=== PATIENT | female | born 1990 | race Caucasian/White ===

== ENCOUNTER 2021-06-12 08:15 | Inpatient (IN) | payer MEDICAID ==
--- NOTE | 2021-06-12 08:53 | XR ---
EXAMINATION TYPE: XR chest 1V portable DATE OF EXAM: 06/12/2021 COMPARISON: NONE HISTORY: Cough TECHNIQUE: Single frontal view of the chest is obtained. FINDINGS: There are partially consolidative opacities in both lung bases right greater than left. There is no pleural effusion or pneumothorax. The heart and pulmonary vasculature are normal. The osseous structures are intact. IMPRESSION: Partially consolidative opacities in the lung bases bilaterally right greater than left. The findings are suspicious for pneumonia. Clinical correlation short-term follow-up to resolution i s recommended.
[2021-06-12] MEDS ORDERED: SODIUM CHLORIDE 0.9% 1,000 ML IV ONE (10:23)
[2021-06-12] MEDS ORDERED: ACETAMINOPHEN TAB 500 MG TAB PO STA (10:27)
[2021-06-12] MEDS ORDERED: KETOROLAC 30 MG/ML 1 ML VIAL IVP STA (10:27)
--- NOTE | 2021-06-12 10:59 | ED ---
URI HPI - General Chief Complaint: Upper Respiratory Infection Stated Complaint: Covid+/HORACIO Time Seen by Provider: 06/12/21 10:07 Source: patient, family, RN notes reviewed Mode of arrival: ambulatory Limitations: no limitations - History of Present Illness Initial Comments: This a 31-year-old female presents emergency Department chief complaint of fever cough congestion bodies. Patient's COVID-19 positive tested positive on Monday. Patient states states that symptoms do not seem to be improving. Continues to have fevers, increasing cough. No GI symptoms including nausea vomiting diarrhea constipation no prior cardiac or lung disease. - Related Data Allergies Allergy/AdvReac Type Severity Reaction Status Date / Time No Known Allergies Allergy Verified 06/12/21 08:37 Review of Systems ROS Statement: Those systems with pertinent positive or pertinent negative responses have been documented in the HPI. ROS Other: All systems not noted in ROS Statement are negative. Past Medical History Past Medical History: No Reported History History of Any Multi-Drug Resistant Organisms: None Reported Past Surgical History: No Surgical Hx Reported Past Psychological History: No Psychological Hx Reported Smoking Status: Never smoker Past Alcohol Use History: Occasional Past Drug Use History: None Reported General Exam Limitations: no limitations General appearance: alert, in no apparent distress Head exam: Present: atraumatic, normocephalic, normal inspection Eye exam: Present: normal appearance, PERRL, EOMI. Absent: scleral icterus, conjunctival injection, periorbital swelling ENT exam: Present: normal exam, mucous membranes moist Neck exam: Present: normal inspection. Absent: tenderness, meningismus, lymphadenopathy Respiratory exam: Present: normal lung sounds bilaterally. Absent: respiratory distress, wheezes, rales, rhonchi, stridor Cardiovascular Exam: Present: normal rhythm, tachycardia, normal heart sounds. Absent: systolic murmur, diastolic murmur, rubs, gallop, clicks Course Vital Signs 06/12/21 06/12/21 08:31 10:52 Temperature 99.7 F H Pulse Rate 102 H 85 Respiratory 22 18 Rate Blood Pressure 107/71 114/65 O2 Sat by Pulse 96 95 Oximetry Medical Decision Making - Medical Decision Making This x-ray shows bilateral COVID-19 pneumonia. Patient's vitals are stable patient did receive monoclonal antibodies, will be discharged in stable condition. Disposition Clinical Impression: COVID-19 Disposition: HOME SELF-CARE Condition: Stable Instructions (If sedation given, give patient instructions): Coronavirus Disease 2019 (COVID-19) Additional Instructions: Please return to the Emergency Department if symptoms worsen or any other concerns. Is patient prescribed a controlled substance at d/c from ED?: No Referrals: Darcie Michael MD [Primary Care Provider] - 1-2 days Time of Disposition: 10:59
[2021-06-12] MEDS ORDERED: SODIUM CHLORIDE 0.9% 50 ML IVPB ONE (11:15)
[2021-06-12] MEDS ORDERED: SOTROVIMAB (EUA) 500 MG in SODIUM CHLORIDE 0.9% 100 ML IVPB ONE (11:15)
[2021-06-12] MEDS ORDERED: DEXAMETHASONE SOD PHOSPHATE 10 MG/ML 1 ML VIAL IVP STA (13:33)
[2021-06-12] MEDS ORDERED: NALOXONE 0.4 MG/ML 1 ML VIAL IV PRN (13:37)
--- NOTE | 2021-06-12 13:37 | ED ---
Medical Decision Making - Medical Decision Making Upon discharge patient noted to have a pulse ox between [id number] upon ambulation patient has a pulse ox 87%. Patient be made for COVID-19 pneumonia. Disposition Clinical Impression: COVID-19, Pneumonia due to COVID-19 virus, Hypoxia Disposition: ADMITTED IP TO THIS HOSP Condition: Fair Instructions (If sedation given, give patient instructions): Coronavirus Dise ase 2019 (COVID-19) Additional Instructions: Please return to the Emergency Department if symptoms worsen or any other concerns. Referrals: Darcie Michael MD [Primary Care Provider] - 1-2 days
[2021-06-12 14:27] LABS: Basophils % (A) 1 %; Eosinophils % (A) 0 %; HCT 31.9 % (34.0-46.0); HGB 11.2 gm/dL (11.4-16.0); Lymphocytes # (A) 0.6 k/uL (1.0-4.8); Lymphocytes % (A) 31 %; MCHC 35.2 g/dL (31.0-37.0); MCV 82.3 fL (80.0-100.0); Mean Platelet Volume 8.9; Monocytes # (A) 0.1 k/uL (0-1.0); Monocytes % (A) 4 %; Neutrophils # (A) 1.2 k/uL (1.3-7.7); Neutrophils % (A) 63 %; Platelet Count 125 k/uL (150-450); RBC 3.88 m/uL (3.80-5.40); RDW 13.9 % (11.5-15.5); WBC 1.9 k/uL (3.8-10.6)
[2021-06-12 15:05] LABS: ALT 138 U/L (4-34); AST 205 U/L (14-36); African American GFR (CKD) >90 (>60 ml/min/1.73 sqM); Albumin 2.9 g/dL (3.5-5.0); Alkaline Phosphatase 89 U/L (38-126); Anion Gap 5 mmol/L; Blood Urea Nitrogen 6 mg/dL (7-17); C Reactive Protein 8.3 mg/dL (<1.0); Calcium 7.6 mg/dL (8.4-10.2); Carbon Dioxide 21 mmol/L (22-30); Chloride 109 mmol/L (98-107); Glucose 83 mg/dL (74-99); LDH 1120 U/L (313-618); Non-African American GFR(CKD) >90 (>60 ml/min/1.73 sqM); Sodium 135 mmol/L (137-145); Total Bilirubin 0.5 mg/dL (0.2-1.3); Total Protein 5.6 g/dL (6.3-8.2)
--- NOTE | 2021-06-12 17:04 | P.HPIM ---
History of Present Illness Patient D1-year-old female came with complaints of a cough congestion started about 7 days ago and patient was diagnosed with Covid 19 about 5 days ago. Patient was receiving monoclonal antibodies earlier today and up having hypoxic subsequently admitted to medical floor. Patient is presently on Decadron Lovenox. She does have elevated liver enzymes. REVIEW OF SYSTEMS: CONSTITUTIONAL: No fever, no malaise, no fatigue. HEENT: No recent visual problems or hearing problems. Denied any sore throat. CARDIOVASCULAR: No chest pain, orthopnea, PND, no palpitations, no syncope. PULMONARY: No shortness of breath, no hemoptysis. GASTROINTESTINAL: No diarrhea, no nausea, no vomiting, no abdominal pain. NEUROLOGICAL: No headaches, no weakness, no numbness. HEMATOLOGICAL: Denies any bleeding or petechiae. GENITOURINARY: Denies any burning micturition, frequency, or urgency. MUSCULOSKELETAL/RHEUMATOLOGICAL: Denies any joint pain, swelling, or any muscle pain. ENDOCRINE: Denies any polyuria or polydipsia. The rest of the 14-point review of systems is negative. PHYSICAL EXAMINATION: GENERAL: The patient is alert and oriented x3, not in any acute distress. Well developed, well nourished. HEENT: Pupils are round and equally reacting to light. EOMI. No scleral icterus. No conjunctival pallor. Normocephalic, atraumatic. No pharyngeal erythema. No thyromegaly. CARDIOVASCULAR: S1 and S2 present. No murmurs, rubs, or gallops. PULMONARY: Chest is clear to auscultation, no wheezing or crackles. ABDOMEN: Soft, nontender, nondistended, normoactive bowel sounds. No palpable organomegaly. MUSCULOSKELETAL: No joint swelling or deformity. EXTREMITIES: No cyanosis, clubbing, or pedal edema. NEUROLOGICAL: Gross neurological examination did not reveal any focal deficits. SKIN: No rashes. Assessment and plan Acute hypoxic respiratory failure secondary to Covid 19 pneumonia and patient is on Decadron which will be continued. -Transaminitis secondary to Covid 19 pneumonia we'll repeat the AST and ALT mariann orrow again DVT prophylaxis: Lovenox Past Medical History Past Medical History: No Reported History History of Any Multi-Drug Resistant Organisms: None Reported Past Surgical History: Tonsillectomy Past Psychological History: No Psychological Hx Reported Smoking Status: Never smoker Past Alcohol Use History: Occasional Past Drug Use History: None Reported Medications and Allergies Home Medications Medication Instructions Recorded Confirmed Type Acetaminophen Tab [Tylenol Tab] 1,000 mg PO Q6HR PRN 06/12/21 06/12/21 History Ascorbic Acid [Vitamin C] 1,000 mg PO DAILY 06/12/21 06/12/21 History Estarylla 0.25-0.035 1 tab PO DAILY 06/12/21 06/12/21 History Ferrous Sulfate [Feosol] 325 mg PO DAILY 06/12/21 06/12/21 History Ibuprofen [Motrin Ib] 800 mg PO Q8H PRN 06/12/21 06/12/21 History guaiFENesin [Mucinex] 600 mg PO BID PRN 06/12/21 06/12/21 History Allergies Allergy/AdvReac Type Severity Reaction Status Date / Time No Known Allergies Allergy Verified 06/12/21 13:53 Physical Exam Vitals: Vital Signs Temp Pulse Pulse Resp BP BP Pulse Ox 06/12/21 16:20 97.5 F L 88 17 91/54 93 L 06/12/21 15:50 97.8 F 87 18 111/68 93 L 06/12/21 13:35 93 L 06/12/21 13:34 87 L 06/12/21 13:00 99 18 90 L 06/12/21 12:32 84 18 115/67 92 L 06/12/21 10:52 85 18 114/65 95 06/12/21 08:31 99.7 F H 102 H 22 107/71 96 Intake and Output 06/12/21 06/12/21 06/12/21 06:59 14:59 22:59 Other: Weight 65.771 kg 65.771 kg Results CBC & Chem 7: 06/12/21 14:15 06/12/21 14:15 Labs: Abnormal Lab Results - Last 24 Hours (Table) 06/12/21 06/12/21 Range/Units 14:15 14:15 WBC 1.9 L (3.8-10.6) k/uL Hgb 11.2 L (11.4-16.0) gm/dL Hct 31.9 L (34.0-46.0) % Plt Count 125 L (150-450) k/uL Neutrophils # 1.2 L (1.3-7.7) k/uL Lymphocytes # 0.6 L (1.0-4.8) k/uL Sodium 135 L (137-145) mmol/L Chloride 109 H (98-107) mmol/L Carbon Dioxide 21 L (22-30) mmol/L BUN 6 L (7-17) mg/dL Calcium 7.6 L (8.4-10.2) mg/dL AST 205 H (14-36) U/L ALT 138 H (4-34) U/L Lactate Dehydrogenase 1120 H (313-618) U/L C-Reactive Protein 8.3 H (<1.0) mg/dL Total Protein 5.6 L (6.3-8.2) g/dL Albumin 2.9 L (3.5-5.0) g/dL
[2021-06-12] MEDS ORDERED: REMDESIVIR 200 MG in SODIUM CHLORIDE 0.9% 250 ML IVPB ONE (17:19)
--- NOTE | 2021-06-12 17:19 | P.CNPUL ---
History of Present Illness Consult date: 06/12/21 Reason for consult: dyspnea, hypoxemia, pneumonia History of present illness: 31-year-old female patient who was hospitalized for COVID 19 related pneumonia. The patient tested positive for COVID 19 on Monday which was 06/07/2021. Her symptoms started approximately 7 days ago. The patient started having fever, increased cough and congestion, and body aches. For that reason, she came into the hospital. In the ED, she had a temperature of 99.7, pulse ox was 96% on room air oxygen. She had a white cell count of 1.9, hemoglobin of 11.2, platelet count of 125, and she also had an LDH of 1120, CRP of 8.3, no electrolytes, sodium level is at 135. Chest x-ray shows bilateral pneumonia consistent with COVID 19 periods currently is on 2 L approximately nasal cannula. She was given Decadron in the emergency department. No other comorbi dities. She is otherwise healthy. Review of Systems Constitutional: Reports fatigue, Reports fever, Reports weakness Eyes: denies as per HPI, denies blurred vision, denies bulging eye, denies decreased vision, denies diplopia, denies discharge, denies dry eye, denies irritation, denies itching, denies pain, denies photophobia, denies loss of peripheral vision, denies loss of vision, denies tunnel vision/blind spots Ears: deny: decreased hearing, ear discharge, earache, tinnitus Ears, nose, mouth and throat: Reports as per HPI Breasts: absent: as per HPI, change in shape, gynecomastia, masses, nipple discharge, pain, skin changes, swelling Cardiovascular: Reports decreased exercise tolerance, Reports dyspnea on exertion Respiratory: Reports dyspnea Gastrointestinal: Reports as per HPI Genitourinary: Reports as per HPI Menstruation: Reports as per HPI Musculoskeletal: Reports as per HPI Musculoskeletal: absent: ankle pain, ankle stiffness, ankle swelling Integumentary: Reports as per HPI Neurological: Reports as per HPI Psychiatric: Reports as per HPI Endocrine: Reports as per HPI, Reports fatigue Hematologic/Lymphatic: Reports as per HPI Allergic/Immunologic: Reports as per HPI Past Medical History Past Medical History: No Reported History History of Any Multi-Drug Resistant Organisms: None Reported Past Surgical History: No Surgical Hx Reported Past Psychological History: No Psychological Hx Reported Smoking Status: Never smoker Past Alcohol Use History: Occasional Past Drug Use History: None Reported Medications and Allergies Home Medications Medication Instructions Recorded Confirmed Type Acetaminophen Tab [Tylenol Tab] 1,000 mg PO Q6HR PRN 06/12/21 06/12/21 History Ascorbic Acid [Vitamin C] 1,000 mg PO DAILY 06/12/21 06/12/21 History Estarylla 0.25-0.035 1 tab PO DAILY 06/12/21 06/12/21 History Ferrous Sulfate [Feosol] 325 mg PO DAILY 06/12/21 06/12/21 History Ibuprofen [Motrin Ib] 800 mg PO Q8H PRN 06/12/21 06/12/21 History guaiFENesin [Mucinex] 600 mg PO BID PRN 06/12/21 06/12/21 History Allergies Allergy/AdvReac Type Severity Reaction Status Date / Time No Known Allergies Allergy Verified 06/12/21 13:53 Physical Exam Vitals: Vital Signs Temp Pulse Resp BP Pulse Ox 06/12/21 15:50 97.8 F 87 18 111/68 93 L 06/12/21 13:35 93 L 06/12/21 13:34 87 L 06/12/21 13:00 99 18 90 L 06/12/21 12:32 84 18 115/67 92 L 06/12/21 10:52 85 18 114/65 95 06/12/21 08:31 99.7 F H 102 H 22 107/71 96 Intake and Output 06/12/21 06/12/21 06/12/21 06:59 14:59 22:59 Other: Weight 65.771 kg General appearance: alert, in no apparent distress, currently on 2 L about 2 by nasal cannula. Head exam: Present: atraumatic, normocephalic, normal inspection Eye exam: Present: normal appearance, PERRL, EOMI. Absent: scleral icterus, conjunctival injection, periorbital swelling ENT exam: Present: normal exam, mucous membranes moist Neck exam: Present: normal inspection. Absent: tenderness, meningismus, lymphadenopathy Respiratory exam: Present: normal lung sounds bilaterally. Absent: respiratory distress, wheezes, rales, rhonchi, stridor Cardiovascular Exam: Present: normal rhythm, tachycardia, normal heart sounds. Absent: systolic murmur, diastolic murmur, rubs, gallop, clicks Abdominal exam revealed normal bowel sounds. The abdomen was soft, non-tender, and without masses, organomegaly, or appreciable enlargement of the abdominal aorta. Examination of the extremities revealed easily palpable radial, femoral and pedal pulses. There was no cyanosis, clubbing or edema. Examination of the skin revealed no evidence of significant rashes, suspicious appearing nevi or other concerning lesions. Neurologically, the patient is awake and alert and the patient does not have any focal neurological deficit. Cranial nerves are essentially intact. Results - Laboratory Findings CBC and BMP: 06/12/21 14:15 06/12/21 14:15 Abnormal lab findings: Abnormal Labs 06/12/21 06/12/21 14:15 14:15 WBC 1.9 L Hgb 11.2 L Hct 31.9 L Plt Count 125 L Neutrophils # 1.2 L Lymphocytes # 0.6 L Sodium 135 L Chloride 109 H Carbon Dioxide 21 L BUN 6 L Calcium 7.6 L AST 205 H ALT 138 H Lactate Dehydrogenase 1120 H C-Reactive Protein 8.3 H Total Protein 5.6 L Albumin 2.9 L - Diagnostic Findings Chest x-ray: image reviewed Assessment and Plan Plan: 1 acute bilateral COVID 19 related pneumonia. Diagnosis established on 06/07/2021. Patient was symptomatically for more than a week. 2 acute hypoxic respiratory failure currently on 2 L by nasal cannula 3 acute hematologic abnormalities second the COVID 19. The patient has leukopenia, anemia and thrombocytopenia. 4 elevation diaphragmatic marker secondary to above. LDH level is at 1120. D-dimer is pending Plan Treat patient with oxygen 2 L per minute nasal cannula and titrate oxygen flow to maintain a saturation above 90% Put the patient on Decadron 6 mg IV every 24 hours and the patient also falls within the window Remdesivir and this will be started per protocol. She is a volume without volume Lovenox for DVT prophylaxis Monitor hematologic profile Obtain D-dimer Obtain pro-calcitonin levels Vitamin C vitamin D and zinc supplements
[2021-06-12] MEDS: SODIUM CHLORIDE 0.9% 1,000 ML IV SCH (17:28)
[2021-06-12] MEDS: FAMOTIDINE 20 MG TAB PO SCH (21:00)
[2021-06-13] MEDS: ACETAMINOPHEN TAB 325 MG TAB PO PRN ×2 (02:12→10:47)
[2021-06-13] MEDS: dexAMETHasone 2 MG TAB PO SCH (07:26)
[2021-06-13] MEDS: ASCORBIC ACID 500 MG TAB PO SCH (07:26)
[2021-06-13] MEDS: CHOLECALCIFEROL 25 MCG (1000 IU) TABLET PO SCH (07:27)
[2021-06-13] MEDS: ENOXAPARIN 40 MG/0.4 ML SYRINGE SQ SCH (07:27)
[2021-06-13] MEDS: FAMOTIDINE 20 MG TAB PO SCH ×2 (07:27→21:27)
[2021-06-13] MEDS: ZINC SULFATE 220 MG CAP PO SCH (07:27)
[2021-06-13] MEDS ORDERED: REMDESIVIR 100 MG in SODIUM CHLORIDE 0.9% 250 ML IVPB SCH (09:00)
[2021-06-13 09:24] LABS: HCT 32.4 % (37.2-46.3); HGB 10.4 g/dL (12.0-15.0); MCH 27.6 pg (27.0-32.0); MCHC 32.1 g/dL (32.0-37.0); MCV 85.9 fL (80.0-97.0); Mean Platelet Volume 11.5 fL (9.5-12.2); Platelet Count 149 X 10*3/uL (140-440); RBC 3.77 X 10*6/uL (4.10-5.20); RDW 13.9 % (11.5-14.5)
[2021-06-13 09:52] LABS: African American GFR (CKD) 140.8 (60.0-200.0); Albumin/Globulin Ratio 1.3 (1.60-3.17); Anion Gap 15.2 mmol/L (10.00-18.00); BUN/Creat Ratio 8.5 Ratio (12.00-20.00); Blood Urea Nitrogen 5.1 mg/dL (9.0-27.0); Calcium 7.5 mg/dL (8.7-10.3); Carbon Dioxide 17.8 mmol/L (20.0-27.5); Globulin 2.3 g/dL (1.6-3.3); Non-African American GFR(CKD) 121.5 (60.0-200.0); Potassium 4.1 mmol/L (3.5-5.5); Total Bilirubin 0.3 mg/dL (0.30-1.20); Total Protein 5.3 g/dL (6.2-8.2)
--- NOTE | 2021-06-13 14:18 | P.PN ---
Subjective Patient D1-year-old female came with complaints of a cough congestion started about 7 days ago and patient was diagnosed with Covid 19 about 5 days ago. Patient was receiving monoclonal antibodies earlier today and up having hypoxic subsequently admitted to medical floor. Patient is presently on Decadron Lovenox. She does have elevated liver enzymes. 06/13/2021 Patient is still febrile with temperature of 100.4. Patient's hyponatremia imp roved white blood cell come improved patient is bit neutropenic yesterday and patient platelet count improved as well all these are because of sepsis. Patient was pretty status although has worsened and patient is presently on 15 L of oxygen. Discussed her CODE STATUS patient is agreeable with full code and intubation if needed patient liver enzymes still remain elevated but improved compared to yesterday. Constitutional: Denied any fatigue denied any fever. Cardio vascular: denied any chest pain, palpitations Gastrointestinal denied any nausea vomiting Pulmonary: Mentioned in HPI Neurologic denied any new focal deficits All inpatient medications were reviewed and appropriate changes in these medications as dictated in the interval history and assessment and plan. PHYSICAL EXAMINATION: GENERAL: The patient is alert and oriented x3, not in any acute distress. Well developed, well nourished. HEENT: Pupils are round and equally reacting to light. EOMI. No scleral icterus. No conjunctival pallor. Normocephalic, atraumatic. No pharyngeal erythema. No thyromegaly. CARDIOVASCULAR: S1 and S2 present. No murmurs, rubs, or gallops. PULMONARY: Chest is clear to auscultation, no wheezing or crackles. ABDOMEN: Soft, nontender, nondistended, normoactive bowel sounds. No palpable o rganomegaly. MUSCULOSKELETAL: No joint swelling or deformity. EXTREMITIES: No cyanosis, clubbing, or pedal edema. NEUROLOGICAL: Gross neurological examination did not reveal any focal deficits. SKIN: No rashes. Assessment and plan Acute hypoxic respiratory failure secondary to Covid 19 pneumonia and patient is on Decadron which will be continued. There is a presently on 15 L of onset and patient has was worsening respiratory status. -Transaminitis secondary to Covid 19 pneumonia we'll repeat the AST and ALT tomorrow again when compared to yesterday -Neutropenia improved secondary to sepsis -Thrombocytopenia improved secondary to sepsis -CODE STATUS: Full code DVT prophylaxis: Lovenox Objective - Vital Signs Vital signs: Vital Signs Temp 100.4 F H 06/13/21 11:00 Pulse 77 06/13/21 11:00 Resp 20 06/13/21 11:00 BP 105/64 06/13/21 11:00 Pulse Ox 89 L 06/13/21 11:00 Intake & Output 06/12/21 06/13/21 06/13/21 18:59 06:59 18:59 Weight 65.771 kg Other: # Voids 1 - Labs CBC & Chem 7: 06/13/21 04:16 06/13/21 04:15 Labs: Abnormal Lab Results - Last 24 Hours (Table) 06/12/21 06/12/21 06/12/21 Range/Units 14:15 14:15 17:12 WBC 1.9 L (3.8-10.6) k/uL RBC (4.10-5.20) X 10*6/uL Hgb 11.2 L (11.4-16.0) gm/dL Hct 31.9 L (34.0-46.0) % Plt Count 125 L (150-450) k/uL Neutrophils # 1.2 L (1.3-7.7) k/uL Lymphocytes # 0.6 L (1.0-4.8) k/uL D-Dimer 0.95 H (<0.60) mg/L FEU Sodium 135 L (137-145) mmol/L Chloride 109 H (98-107) mmol/L Carbon Dioxide 21 L (22-30) mmol/L BUN 6 L (7-17) mg/dL BUN/Creatinine Ratio (12.00-20.00) Ratio Glucose (70-110) mg/dL Calcium 7.6 L (8.4-10.2) mg/dL AST 205 H (14-36) U/L ALT 138 H (4-34) U/L Lactate Dehydrogenase 1120 H (313-618) U/L C-Reactive Protein 8.3 H (<1.0) mg/dL Total Protein 5.6 L (6.3-8.2) g/dL Albumin 2.9 L (3.5-5.0) g/dL Albumin/Globulin Ratio (1.60-3.17) g/dL Procalcitonin (0.02-0.09) ng/mL 06/12/21 06/13/21 06/13/21 Range/Units 17:12 04:15 04:16 WBC 3.80 L (3.8-10.6) k/uL RBC 3.77 L (4.10-5.20) X 10*6/uL Hgb 10.4 L (11.4-16.0) gm/dL Hct 32.4 L (34.0-46.0) % Plt Count (150-450) k/uL Neutrophils # (1.3-7.7) k/uL Lymphocytes # (1.0-4.8) k/uL D-Dimer (<0.60) mg/L FEU Sodium (137-145) mmol/L Chloride (98-107) mmol/L Carbon Dioxide 17.8 L (22-30) mmol/L BUN 5.1 L (7-17) mg/dL BUN/Creatinine Ratio 8.50 L (12.00-20.00) Ratio Glucose 125 H (70-110) mg/dL Calcium 7.5 L (8.4-10.2) mg/dL AST 122 H (14-36) U/L ALT 114 H (4-34) U/L Lactate Dehydrogenase (313-618) U/L C-Reactive Protein (<1.0) mg/dL Total Protein 5.3 L (6.3-8.2) g/dL Albumin 3.0 L (3.5-5.0) g/dL Albumin/Globulin Ratio 1.30 L (1.60-3.17) g/dL Procalcitonin 0.64 H (0.02-0.09) ng/mL
[2021-06-13] MEDS: SODIUM CHLORIDE 0.9% 1,000 ML IV SCH (14:33)
--- NOTE | 2021-06-13 15:21 | P.PN ---
Subjective Progress Note Date: 06/13/21 Principal diagnosis: COVID-19 pneumonia 31-year-old female patient who was hospitalized for COVID 19 related pneumonia. The patient tested positive for COVID 19 on Monday which was 06/07/2021. Her symptoms started approximately 7 days ago. The patient started having fever, in creased cough and congestion, and body aches. For that reason, she came into the hospital. In the ED, she had a temperature of 99.7, pulse ox was 96% on room air oxygen. She had a white cell count of 1.9, hemoglobin of 11.2, platelet count of 125, and she also had an LDH of 1120, CRP of 8.3, no e lectrolytes, sodium level is at 135. Chest x-ray shows bilateral pneumonia consistent with COVID 19 periods currently is on 2 L approximately nasal cannula. She was given Decadron in the emergency department. No other comorbidities. She is otherwise healthy. The patient is seen today 06/13/2021 in follow-up on the regular medical floor. She is currently awake and alert in no acute distress. Resting fairly comfortably in bed. Her oxygen requirements have increased however she is currently requiring a nonrebreather mask. White count 2.8. Hemoglobin 7.4 sodium 138. Potassium 4.1. Creatinine 0.6. AST 122. ALT 114. Focused 0.64. D-dimer 0.95. The day #2 of Remdesivir. She remains on Lovenox, Decadron, vitamin supplement. Objective - Vital Signs Vital signs: Vital Signs Temp 98 F 06/13/21 14:00 Pulse 82 06/13/21 14:00 Resp 18 06/13/21 14:00 BP 119/65 06/13/21 14:00 Pulse Ox 88 L 06/13/21 14:00 Intake & Output 06/12/21 06/13/21 06/13/21 18:59 06:59 18:59 Weight 65.771 kg Other: # Voids 1 - Exam GENERAL EXAM: Alert, very pleasant 31-year-old female patient, on nonrebreather mask, fairly comfortable in no apparent distress. HEAD: Normocephalic. EYES: Normal reaction of pupils, equal size. NOSE: Clear with pink turbinates. THROAT: No erythema or exudates. NECK: No masses, no JVD. CHEST: No chest wall deformity. LUNGS: Equal air entry with crackles in the bilateral bases. CVS: S1 and S2 normal with no audible murmur, regular rhythm. ABDOMEN: No hepatosplenomegaly, normal bowel sounds, no guarding or rigidity. SPINE: No scoliosis or deformity SKIN: No rashes CENTRAL NERVOUS SYSTEM: No focal deficits, tone is normal in all 4 extremities. EXTREMITIES: There is no peripheral edema. No clubbing, no cyanosis. Peripheral pulses are intact. - Labs CBC & Chem 7: 06/13/21 04:16 06/13/21 04:15 Labs: Abnormal Lab Results - Last 24 Hours (Table) 06/12/21 06/12/21 06/12/21 Range/Units 14:15 17:12 17:12 WBC (4.50-10.00) X 10*3/uL RBC (4.10-5.20) X 10*6/uL Hgb (12.0-15.0) g/dL Hct (37.2-46.3) % D-Dimer 0.95 H (<0.60) mg/L FEU Sodium 135 L (137-145) mmol/L Chloride 109 H (98-107) mmol/L Carbon Dioxide 21 L (22-30) mmol/L BUN 6 L (7-17) mg/dL BUN/Creatinine Ratio (12.00-20.00) Ratio Glucose (70-110) mg/dL Calcium 7.6 L (8.4-10.2) mg/dL AST 205 H (14-36) U/L ALT 138 H (4-34) U/L Lactate Dehydrogenase 1120 H (313-618) U/L C-Reactive Protein 8.3 H (<1.0) mg/dL Total Protein 5.6 L (6.3-8.2) g/dL Albumin 2.9 L (3.5-5.0) g/dL Albumin/Globulin Ratio (1.60-3.17) g/dL Procalcitonin 0.64 H (0.02-0.09) ng/mL 06/13/21 06/13/21 Range/Units 04:15 04:16 WBC 3.80 L (4.50-10.00) X 10*3/uL RBC 3.77 L (4.10-5.20) X 10*6/uL Hgb 10.4 L (12.0-15.0) g/dL Hct 32.4 L (37.2-46.3) % D-Dimer (<0.60) mg/L FEU Sodium (137-145) mmol/L Chloride (98-107) mmol/L Carbon Dioxide 17.8 L (22-30) mmol/L BUN 5.1 L (7-17) mg/dL BUN/Creatinine Ratio 8.50 L (12.00-20.00) Ratio Glucose 125 H (70-110) mg/dL Calcium 7.5 L (8.4-10.2) mg/dL AST 122 H (14-36) U/L ALT 114 H (4-34) U/L Lactate Dehydrogenase (313-618) U/L C-Reactive Protein (<1.0) mg/dL Total Protein 5.3 L (6.3-8.2) g/dL Albumin 3.0 L (3.5-5.0) g/dL Albumin/Globulin Ratio 1.30 L (1.60-3.17) g/dL Procalcitonin (0.02-0.09) ng/mL Assessment and Plan Assessment: 1 acute bilateral COVID 19 related pneumonia. Diagnosis established on 06/07/2021. Day #2 of Remdesivir. However the patient's oxygen requirements have gone up she is on 100% nonrebreather mask. We will stop the Remdesivir. Initiate Baricitinib today 06/13/2021. 2 acute hypoxic respiratory failure initially on 2 L by nasal cannula 3 acute hematologic abnormalities second the COVID 19. The patient has leukopenia, anemia and thrombocytopenia. Improving 4 elevation diaphragmatic marker secondary to above. LDH level is at 1120. D- dimer is 0.95. Plan The patient was seen and evaluated today Oxygen requirements have gone up and she is on a nonrebreather mask We'll discontinue Remdesivir, initiate Baricitinib Continue Decadron, Lovenox, vitamin supplements Titrate the FiO2 as tolerated Follow-up chest x-ray and inflammatory markers in the a.m. We will continue to follow
[2021-06-13] MEDS: BARICITINIB 2 MG TABLET PO SCH (18:03)
--- NOTE | 2021-06-14 06:58 | XR ---
EXAMINATION TYPE: XR chest 1V portable DATE OF EXAM: 06/14/2021 CLINICAL HISTORY: Difficulty breathing and covid pneumonia progress study. TECHNIQUE: Single AP portable upright view of the chest is obtained. COMPARISON: Chest x-ray from 2 days earlier FINDINGS: Persistent bilateral mid to lower lung multifocal and confluent opacities becoming more pr ominent or confluent. Somewhat low lung volumes redemonstrated. Cardiac silhouette size remains withi n normal limits. Osseous structures are intact. IMPRESSION: Slightly more prominent worsening bilateral mid to lower lung multifocal and confluent op acities consistent with covid-19 infection progression.
[2021-06-14] MEDS: CHOLECALCIFEROL 25 MCG (1000 IU) TABLET PO SCH (08:09)
[2021-06-14] MEDS: BARICITINIB 2 MG TABLET PO SCH (08:09)
[2021-06-14] MEDS: FAMOTIDINE 20 MG TAB PO SCH ×2 (08:09→20:49)
[2021-06-14] MEDS: ASCORBIC ACID 500 MG TAB PO SCH (08:09)
[2021-06-14] MEDS: ZINC SULFATE 220 MG CAP PO SCH (08:09)
[2021-06-14] MEDS: ENOXAPARIN 40 MG/0.4 ML SYRINGE SQ SCH (08:09)
[2021-06-14] MEDS: dexAMETHasone 2 MG TAB PO SCH (08:09)
[2021-06-14] MEDS: SODIUM CHLORIDE 0.9% 1,000 ML IV SCH (08:09)
[2021-06-14 10:57] LABS: C Reactive Protein 5.7 mg/dL (0.00-0.80)
[2021-06-14 11:02] LABS: Albumin 3.2 g/dL (3.8-4.9); Albumin/Globulin Ratio 1.37 (1.60-3.17); Anion Gap 10.5 mmol/L (10.00-18.00); BUN/Creat Ratio 20.26 Ratio (12.00-20.00); Blood Urea Nitrogen 11.1 mg/dL (9.0-27.0); Calcium 8.1 mg/dL (8.7-10.3); Carbon Dioxide 21.6 mmol/L (20.0-27.5); Globulin 2.4 g/dL (1.6-3.3); Non-African American GFR(CKD) 125.1 (60.0-200.0); Potassium 4.9 mmol/L (3.5-5.5); Total Bilirubin 0.3 mg/dL (0.30-1.20); Total Protein 5.6 g/dL (6.2-8.2)
[2021-06-14 14:37] LABS: Basophils # (A) 0.01 X 10*3/uL (0.00-0.10); Basophils % (A) 0.3 %; Eosinophils # (A) 0 X 10*3/uL (0.04-0.35); Eosinophils % (A) 0 %; HCT 36.4 % (37.2-46.3); HGB 11.8 g/dL (12.0-15.0); Lymphocytes # (A) 1.13 X 10*3/uL (0.90-5.00); Lymphocytes % (A) 28.5 %; MCH 27.5 pg (27.0-32.0); MCHC 32.4 g/dL (32.0-37.0); MCV 84.8 fL (80.0-97.0); Mean Platelet Volume 11.4 fL (9.5-12.2); Monocytes # (A) 0.62 X 10*3/uL (0.20-1.00); Monocytes % (A) 15.6 %; Neutrophils # (A) 2.16 X 10*3/uL (1.80-7.70); Neutrophils % (A) 54.3 %; Platelet Count 232 X 10*3/uL (140-440); RBC 4.29 X 10*6/uL (4.10-5.20); WBC 3.97 X 10*3/uL (4.50-10.00)
--- NOTE | 2021-06-14 17:38 | P.PN ---
Subjective Progress Note Date: 06/14/21 Principal diagnosis: Dyspnea, hypoxia On 06/14/2001 patient seen in follow-up on medical surgical floor, she is awake and alert, in no acute distress, although she is requiring high flow oxygen, currently on 100% nonrebreather mask with a pulse ox of 93%, she states it still hurts her chest when she is coughing on the right side. She tested positive for COVID-19, she has been started on Decadron 6 mg daily, she is on prophylactic dose Lovenox in addition to multivitamins, yesterday she was also started on Baricitinib view of worsening hypoxia, patient is not vaccinated, but she status post monoclonal antibody infusion, today's labs have been reviewed, and a pro calcitonin level is elevated at 0.64 suggesting bacterial superinfection. Her white blood cell count is 3.97, improving hemoglobin is 11.8, d-dimer is 0.71, electrolytes are unremarkable, BUN is 11 creatinine 0.5, LDH is improved and is down to 571, CRP is also improving and is down to 5.7. Her cough is dry, no phlegm production. No hemoptysis. No altered mentation. She is afebrile. Objective - Vital Signs Vital signs: Vital Signs Temp 98.7 F 06/14/21 14:00 Pulse 73 06/14/21 14:00 Resp 16 06/14/21 14:00 BP 132/80 06/14/21 14:00 Pulse Ox 91 L 06/14/21 14:00 Intake & Output 06/13/21 06/14/21 06/14/21 18:59 06:59 18:59 Intake Total 480 960 Balance 480 960 Intake: Intake, IV Titration 600 Amount Sodium Chloride 0.9% 1, 600 000 ml @ 75 mls/hr IV . [id number] [facility] Rx#:[id number] Oral 480 360 Other: # Voids 1 1 - Exam GENERAL EXAM: Alert, very pleasant, 31-year-old white female, currently on 100% nonrebreather mask with a pulse ox of 95% comfortable in no apparent distress. HEAD: Normocephalic/atraumatic. EYES: Normal reaction of pupils, equal size. Conjunctiva pink, sclera white. NOSE: Clear with pink turbinates. THROAT: No erythema or exudates. NECK: No masses, no JVD, no thyroid enlargement, no adenopathy. CHEST: No chest wall deformity. Symmetrical expansion. LUNGS: Equal air entry with diminished breath sounds on bilateral crackles CVS: Regular rate and rhythm, normal S1 and S2, no gallops, no murmurs, no rubs ABDOMEN: Soft, nontender. No hepatosplenomegaly, normal bowel sounds, no gua rding or rigidity. EXTREMITIES: No clubbing, no edema, no cyanosis, 2+ pulses and upper and lower extremities. MUSCULOSKELETAL: Muscle strength and tone normal. SPINE: No scoliosis or deformity SKIN: No rashes CENTRAL NERVOUS SYSTEM: Alert and oriented -3. No focal deficits, tone is normal in all 4 extremities. PSYCHIATRIC: Alert and oriented -3. Appropriate affect. Intact judgment and insight. - Labs CBC & Chem 7: 06/14/21 06:25 12 06:25 Labs: Abnormal Lab Results - Last 24 Hours (Table) 06/14/21 06/14/21 06/14/21 Range/Units 06:25 06:25 06:25 WBC 3.97 L (4.50-10.00) X 10*3/uL Hgb 11.8 L (12.0-15.0) g/dL Hct 36.4 L (37.2-46.3) % Immature Gran # 0.05 H (0.00-0.04) X 10*3/uL Eosinophils # 0 L (0.04-0.35) X 10*3/uL D-Dimer 0.71 H (<0.60) mg/L FEU Creatinine 0.5 L (0.6-1.5) mg/dL BUN/Creatinine Ratio 20.26 H (12.00-20.00) Ratio Glucose 114 H (70-110) mg/dL Calcium 8.1 L (8.7-10.3) mg/dL AST 86 H (13-35) U/L ALT 95 H (8-44) U/L Lactate Dehydrogenase 571 H (120-246) U/L C-Reactive Protein 5.70 H (0.00-0.80) mg/dL Total Protein 5.6 L (6.2-8.2) g/dL Albumin 3.2 L (3.8-4.9) g/dL Albumin/Globulin Ratio 1.37 L (1.60-3.17) g/dL Assessment and Plan Plan: Assessment: #1. Acute hypoxic respiratory failure, multifactorial, related to acute COVID- 19 related pneumonia, diagnosis was established on 06/07/2021, patient was symptomatic for more than a week, she was outside the window for Remdesivir, in view of severe hypoxia she was started on Baricitinib. Possibility of underlying bacterial infection is not completely excluded based on elevated pro calcitonin of 0.64 #2. Rule out possibility of bacterial pneumonia, possibly community acquired pneumonia based on elevated pro calcitonin. We'll stop paroxetine up today on 06/14/2021 and start the patient on Rocephin #3. Acute leukopenia, rule out component of sepsis #4. Anemia and thrombocytopenia possibly related to sepsis and COVID-19 related pneumonia #5. Elevated inflammatory markers related to acute COVID-19 related pneumonia #6. Mildly elevated d-dimer, will obtain CT angiogram of the chest to rule out possibility of pulmonary embolism Plan: We'll stop Baricitinib Continue Decadron We will add Rocephin for empiric antibiotic coverage We'll continue to follow inflammatory markers, pro calcitonin level, we will obtain sputum culture, we'll send a blood culture, and send Legionella urine antigen Wean FiO2 to keep O2 sats ration is at 90% and above Continue prophylactic Lovenox, obtained CT angiogram the chest to rule out possibility of pulmonary embolism and we will obtain lower extremity Dopplers to rule out DVT Continue to closely follow I performed a history & physical examination of the patient and discussed their management with my nurse practitioner, Megan Ibrahim. I reviewed the nurse practitioner's note and agree with the documented findings and plan of care. Lung sounds are positive for dimin breath sounds throughout the lung sarah. The findings and the impression was discussed with the patient. I attest to the documentation by the nurse practitioner. Time with Patient: Less than 30
--- NOTE | 2021-06-14 17:48 | CT ---
EXAMINATION TYPE: CT angio chest DATE OF EXAM: 06/14/2021 COMPARISON: None HISTORY: Shortness of breath. CT DLP: 295.7 mGycm Automated exposure control for dose reduction was used. CONTRAST: Performed with IV Contrast, patient injected with 100 mL of Isovue 370. Images obtained from the thoracic inlet to the diaphragm with IV contrast. There are 3-D post process ed images. There is patchy airspace consolidation in both lungs. Heart size is normal. There is no pericardial e ffusion. There is no mediastinal adenopathy. There are no hilar masses. There is normal contrast opac ification of the pulmonary arteries. There are no filling defects. Thoracic aorta is intact. There is no aneurysm or dissection. Thoracic spine is intact. There is no compression fracture. IMPRESSION: No evidence of pulmonary embolism. Extensive bilateral pneumonia.
[2021-06-14] MEDS ORDERED: LORazepam 2 MG/ML INJ IV PRN (21:59)
--- NOTE | 2021-06-14 22:09 | P.PN ---
Subjective Progress Note Date: 06/14/21 Patient D1-year-old female came with complaints of a cough congestion started about 7 days ago and patient was diagnosed with Covid 19 about 5 days ago. Patient was receiving monoclonal antibodies earlier today and up having hypoxic subsequently admitted to medical floor. Patient is presently on Decadron Lovenox. She does have elevated liver enzymes. 06/13/2021 Patient is still febrile with temperature of 100.4. Patient's hyponatremia improved white blood cell come improved patient is bit neutropenic yesterday and patient platelet count improved as well all these are because of sepsis. Samira ent was pretty status although has worsened and patient is presently on 15 L of oxygen. Discussed her CODE STATUS patient is agreeable with full code and intubation if needed patient liver enzymes still remain elevated but improved compared to yesterday. 06/14/2021 Patient is seen and evaluated in follow-up this morning and continues on 15 L nonrebreather with pulmonary following. Patient is continued on dexamethasone along with vitamin and zinc supplements and was on Baricitinib and discontinued by pulmonary and started on IV ceftriaxone. Chest xray done today shows slightly more prominent worsening bilateral mid to lower lung multifocal and confluent opacities consistent with covid 19 progression. Patient appears anxious. Patient denies any chest pain or palpitations. Patient is afebrile today. Will add incentive spirometer and encouraged activity as tolerated. Labs: sodium is 141, potassium is 4.9, creatinine is 0.6, LFTs trending down, LDH is 571, crp 5.70, wbc is 3.97, hemoglogin is 11.8, platelets are 232, d-dimer is 0.71 Constitutional: Denied any fatigue denied any fever. Reports anxiety Cardiovascular: denied any chest pain, palpitations Gastrointestinal denied any nausea vomiting Pulmonary: reports shortness of breath and cough Neurologic denied any new focal deficits All inpatient medications were reviewed and appropriate changes in these medications as dictated in the interval history and assessment and plan. Active Medications Acetaminophen (Acetaminophen Tab 325 Mg Tab) 650 mg PO Q6HR PRN PRN Reason: Mild Pain or Fever > 100.5 Last Admin: 06/13/21 10:47 Dose: 650 mg Documented by: Ascorbic Acid (Ascorbic Acid 500 Mg Tab) 1,000 mg PO DAILY [facility] Last Admin: 06/14/21 08:09 Dose: 1,000 mg Documented by: Cholecalciferol (Cholecalciferol 25 Mcg (1000 Iu) Tablet) 25 mcg PO DAILY [facility] Last Admin: 06/14/21 08:09 Dose: 25 mcg Documented by: Dexamethasone (Dexamethasone 2 Mg Tab) 6 mg PO DAILY [facility] Last Admin: 06/14/21 08:09 Dose: 6 mg Documented by: Enoxaparin Sodium (Enoxaparin 40 Mg/0.4 Ml Syringe) 40 mg SQ DAILY [facility] Last Admin: 06/14/21 08:09 Dose: 40 mg Documented by: Famotidine (Famotidine 20 Mg Tab) 20 mg PO BID [facility] Last Admin: 06/14/21 08:09 Dose: 20 mg Documented by: Ceftriaxone Sodium 1 gm/ (Sodium Chloride) 50 mls @ 100 mls/hr IVPB Q24HR [facility] Naloxone HCl (Naloxone 0.4 Mg/Ml 1 Ml Vial) 0.2 mg IV Q2M PRN PRN Reason: Opioid Reversal Zinc Sulfate (Zinc Sulfate 220 Mg Cap) 220 mg PO DAILY [facility] Last Admin: 06/14/21 08:09 Dose: 220 mg Documented by: PHYSICAL EXAMINATION: GENERAL: The patient is alert and oriented x3, mildly anxious. Well developed, well nourished. HEENT: Pupils are round and equally reacting to light. EOMI. No scleral icterus. No conjunctival pallor. Normocephalic, atraumatic. No pharyngeal erythema. No thyromegaly. CARDIOVASCULAR: S1 and S2 present. No murmurs, rubs, or gallops. PULMONARY: diminished breath sounds bilaterally otherwise Chest is clear to auscultation, no wheezing or crackles. ABDOMEN: Soft, nontender, nondistended, normoactive bowel sounds. No palpable organomegaly. MUSCULOSKELETAL: No joint swelling or deformity. EXTREMITIES: No cyanosis, clubbing, or pedal edema. NEUROLOGICAL: Gross neurological examination did not reveal any focal deficits. SKIN: No rashes. Assessment: -Acute hypoxic respiratory failure secondary to Covid 19 pneumonia, patient is continued on oral dexamethasone along with covid supplements and lovenox, Baricitinib discontinued. Pulmonary following, on 15 L Non-rebreather -Transaminitis secondary to Covid 19 pneumonia, trending down today -elevated d-dimer with no evidence of PE on CT of the chest -Neutropenia improved secondary to sepsis -Thrombocytopenia improved secondary to sepsis -anxiety -Full code -DVT prophylaxis: Lovenox Plan: Continue on current medication regimen of Covid vitamin supplements along with Lovenox and oral dexamethasone. Pulmonary following. a chest x-ray was repeated today showing slightly more prominent worsening bilateral mid to lower lung multifocal and confluent opacification is consistent with Covid 19 infection progression in pulmonary starting on IV ceftriaxone. Will add incentive spirometer and encourage the patient to use at least 1o times every hour while awake. CT of the chest was done and PE ruled out. Also discussed with the patient about increasing activity as tolerated and sitting up in the chair more so than in the bed and when laying to continue with position changes of on the left and right side along with proning if possible. Lab slowly improving and will repeat and continue to monitor closely. guarded prognosis. Objective - Vital Signs Vital signs: Vital Signs Temp 98.1 F 06/14/21 06:00 Pulse 68 06/14/21 06:00 Resp 18 06/14/21 06:00 BP 127/73 06/14/21 06:00 Pulse Ox 88 L 06/14/21 06:00 Intake & Output 06/13/21 06/14/21 06/14/21 18:59 06:59 18:59 Intake Total 480 Balance 480 Intake: Oral 480 Other: # Voids 1 1 - Labs CBC & Chem 7: 06/14/21 06:25 06/14/21 06:25 Labs: Abnormal Lab Results - Last 24 Hours (Table) 06/13/21 06/14/21 Range/Units 04:15 06:25 D-Dimer 0.71 H (<0.60) mg/L FEU Carbon Dioxide 17.8 L (20.0-27.5) mmol/L BUN 5.1 L (9.0-27.0) mg/dL BUN/Creatinine Ratio 8.50 L (12.00-20.00) Ratio Glucose 125 H (70-110) mg/dL Calcium 7.5 L (8.7-10.3) mg/dL AST 122 H (13-35) U/L ALT 114 H (8-44) U/L Total Protein 5.3 L (6.2-8.2) g/dL Albumin 3.0 L (3.8-4.9) g/dL Albumin/Globulin Ratio 1.30 L (1.60-3.17) g/dL
[2021-06-14 23:53] LABS: Appearance,Urine Clear (Clear); Bacteria,Urine Rare /hpf; Bilirubin,Urine Negative (Negative); Blood,Urine Trace (Negative); Color,Urine Light Yellow; Glucose,Urine (UA) Negative (Negative); Ketones,Urine Negative (Negative); Leukocyte Esterase,Urine Small (Negative); Nitrite,Urine Negative (Negative); Protein,Urine Negative (Negative); RBC,Urine 1 /hpf (0-5); Specific Gravity,Urine >1.050 (1.001-1.035); Squamous Epithelial Cell,Urine <1 /hpf (0-4); Urobilinogen,Urine <2.0 mg/dL (<2.0); WBC,Urine 3 /hpf (0-5)
[2021-06-15] MEDS: dexAMETHasone 2 MG TAB PO SCH (10:23)
[2021-06-15] MEDS: CHOLECALCIFEROL 25 MCG (1000 IU) TABLET PO SCH (10:23)
[2021-06-15] MEDS: ZINC SULFATE 220 MG CAP PO SCH (10:23)
[2021-06-15] MEDS: ENOXAPARIN 40 MG/0.4 ML SYRINGE SQ SCH (10:23)
[2021-06-15] MEDS: FAMOTIDINE 20 MG TAB PO SCH ×2 (10:23→20:23)
[2021-06-15] MEDS: ASCORBIC ACID 500 MG TAB PO SCH (10:23)
[2021-06-15 11:44] LABS: African American GFR (CKD) 142.3 (60.0-200.0); Albumin 3.1 g/dL (3.8-4.9); Albumin/Globulin Ratio 1.36 (1.60-3.17); Anion Gap 12.6 mmol/L (10.00-18.00); BUN/Creat Ratio 24.1 Ratio (12.00-20.00); Calcium 8.3 mg/dL (8.7-10.3); Carbon Dioxide 20.8 mmol/L (20.0-27.5); Globulin 2.3 g/dL (1.6-3.3); Non-African American GFR(CKD) 122.8 (60.0-200.0); Potassium 4.6 mmol/L (3.5-5.5); Total Bilirubin 0.4 mg/dL (0.30-1.20); Total Protein 5.4 g/dL (6.2-8.2)
--- NOTE | 2021-06-15 12:31 | P.PN ---
Subjective Progress Note Date: 06/15/21 Principal diagnosis: Dyspnea, hypoxia On 06/14/2001 patient seen in follow-up on medical surgical floor, she is awake and alert, in no acute distress, although she is requiring high flow oxygen, currently on 100% nonrebreather mask with a pulse ox of 93%, she states it still hurts her chest when she is coughing on the right side. She tested positive for COVID-19, she has been started on Decadron 6 mg daily, she is on prophylactic dose Lovenox in addition to multivitamins, yesterday she was also started on Baricitinib view of worsening hypoxia, patient is not vaccinated, but she status post monoclonal antibody infusion, today's labs have been reviewed, and a pro calcitonin level is elevated at 0.64 suggesting bacterial superinfection. Her white blood cell count is 3.97, improving hemoglobin is 11.8, d-dimer is 0.71, electrolytes are unremarkable, BUN is 11 creatinine 0.5, LDH is improved and is down to 571, CRP is also improving and is down to 5.7. Her cough is dry, no phlegm production. No hemoptysis. No altered mentation. She is afebrile. On today's evaluation on 06/15/2021 patient seen in follow-up on medical surgical floor, she remains on a nonrebreather mask, and 100%, her pulse ox is 94-97%, she has been afebrile, hemodynamically she is been stable, her chest discomfort that she was experiencing with coughing and deep breathing on admission has improved, patient appears no cough, but there is no phlegm production. Lung sounds reveal diminished breath sounds with bilateral crackles, CTA chest showed no evidence of pulmonary embolism, it did show extensive bilateral pneumonia, her pro-calcitonin level was borderline elevated to 0.64 suggesting possibility of underlying bacterial infection in addition to COVID-19 pneumonia, Rocephin was added for empiric antibiotic coverage yesterday, patient continues on Decadron 6 mg daily, in addition to prophylactic Lovenox. Her last d-dimer yesterday was 0.71. Her inflammatory markers on yesterday's labs were improving compared admission levels. Patient is requesting a form filled out for her employer in regards to her COVID-19 vaccination. At this time patient cannot have COVID-19 vaccine due to active COVID-19 infection and active COVID-19 pneumonia, patient will not be able to receive COVID-19 vaccination for at least 90 days after her initial positive COVID-19 test. Objective - Vital Signs Vital signs: Vital Signs Temp 97.6 F 06/15/21 11:43 Pulse 51 L 06/15/21 11:43 Resp 20 06/15/21 11:43 BP 127/71 06/15/21 11:43 Pulse Ox 97 06/15/21 11:43 Intake & Output 06/14/21 06/15/21 06/15/21 18:59 06:59 18:59 Intake Total 960 Balance 960 Intake: Intake, IV Titration 600 Amount Sodium Chloride 0.9% 1, 600 000 ml @ 75 mls/hr IV . [id number] [facility] Rx#:[id number] Oral 360 Other: # Voids 1 - Exam GENERAL EXAM: Alert, very pleasant, 31-year-old white female, currently on 100% nonrebreather mask with a pulse ox of 95% comfortable in no apparent distress. HEAD: Normocephalic/atraumatic. EYES: Normal reaction of pupils, equal size. Conjunctiva pink, sclera white. NOSE: Clear with pink turbinates. THROAT: No erythema or exudates. NECK: No masses, no JVD, no thyroid enlargement, no adenopathy. CHEST: No chest wall deformity. Symmetrical expansion. LUNGS: Equal air entry with diminished breath sounds on bilateral crackles CVS: Regular rate and rhythm, normal S1 and S2, no gallops, no murmurs, no rubs ABDOMEN: Soft, nontender. No hepatosplenomegaly, normal bowel sounds, no guarding or rigidity. EXTREMITIES: No clubbing, no edema, no cyanosis, 2+ pulses and upper and lower extremities. MUSCULOSKELETAL: Muscle strength and tone normal. SPINE: No scoliosis or deformity SKIN: No rashes CENTRAL NERVOUS SYSTEM: Alert and oriented -3. No focal deficits, tone is normal in all 4 extremities. PSYCHIATRIC: Alert and oriented -3. Appropriate affect. Intact judgment and insight. - Labs CBC & Chem 7: 06/14/21 06:25 06/15/21 05:33 Labs: Abnormal Lab Results - Last 24 Hours (Table) 06/14/21 06/14/21 06/15/21 Range/Units 06:25 19:40 05:33 WBC 3.97 L (4.50-10.00) X 10*3/uL Hgb 11.8 L (12.0-15.0) g/dL Hct 36.4 L (37.2-46.3) % Immature Gran # 0.05 H (0.00-0.04) X 10*3/uL Eosinophils # 0 L (0.04-0.35) X 10*3/uL Chloride 110 H (96-109) mmol/L BUN/Creatinine Ratio 24.10 H (12.00-20.00) Ratio Glucose 129 H (70-110) mg/dL Calcium 8.3 L (8.7-10.3) mg/dL AST 107 H (13-35) U/L ALT 113 H (8-44) U/L Total Protein 5.4 L (6.2-8.2) g/dL Albumin 3.1 L (3.8-4.9) g/dL Albumin/Globulin Ratio 1.36 L (1.60-3.17) g/dL Ur Specific [place] >1.050 H (1.001-1.035) Urine Blood Trace H (Negative) Ur Leukocyte Esterase Small H (Negative) Urine Bacteria Rare H (None) /hpf Assessment and Plan Plan: Assessment: #1. Acute hypoxic respiratory failure, multifactorial, related to acute COVID- 19 related pneumonia, diagnosis was established on 06/07/2021, patient was symptomatic for more than a week, she was outside the window for Remdesivir, in view of severe hypoxia she was started on Baricitinib. Possibility of underlying bacterial infection is not completely excluded based on elevated pro calcitonin of 0.64 #2. Rule out possibility of bacterial pneumonia, possibly community acquired pneumonia based on elevated pro calcitonin. We'll stop Barocitinib today on 06/14/2021 and start the patient on Rocephin #3. Acute leukopenia, rule out component of sepsis #4. Anemia and thrombocytopenia possibly related to sepsis and COVID-19 related pneumonia #5. Elevated inflammatory markers related to acute COVID-19 related pneumonia #6. Mildly elevated d-dimer, CT angios the chest was negative for pulmonary embolism Plan: Continue Decadron Continue prophylactic Lovenox Continue empiric antibiotics in the form of Rocephin for possibility of underlying bacterial pneumonia Send legionella urine antigen Switch to high flow nasal cannula and wean FiO2 to maintain O2 saturations at or above 90% CT angiogram of the chest was reviewed showing no evidence of pulmonary embolism and extensive bilateral pneumonia We'll obtain a follow-up pro-calcitonin Continue to closely follow patient's clinical course Patient is not eligible for COVID-19 vaccine at this time for the reason of active COVID-19 pneumonia for a period of 90 days after initial COVID-19 positive test This progress note Will be attached to the COVID-19 exemption form for the patient's employer per patient's request I performed a history & physical examination of the patient and discussed their management with my nurse practitioner, Megan Ibrahim. I reviewed the nurse practitioner's note and agree with the documented findings and plan of care. Lung sounds are positive for dimin breath sounds throughout the lung sarah. The findings and the impression was discussed with the patient. I attest to the documentation by the nurse practitioner. Time with Patient: Less than 30
[2021-06-15] MEDS: AZITHROMYCIN 500 MG TAB PO SCH (13:39)
--- NOTE | 2021-06-15 14:42 | P.PN ---
Subjective Progress Note Date: 06/15/21 Patient D1-year-old female came with complaints of a cough congestion started about 7 days ago and patient was diagnosed with Covid 19 about 5 days ago. Patient was receiving monoclonal antibodies earlier today and up having hypoxic subsequently admitted to medical floor. Patient is presently on Decadron Lovenox. She does have elevated liver enzymes. 06/13/2021 Patient is still febrile with temperature of 100.4. Patient's hyponatremia improved white blood cell come improved patient is bit neutropenic yesterday and patient platelet count improved as well all these are because of sepsis. Samira ent was pretty status although has worsened and patient is presently on 15 L of oxygen. Discussed her CODE STATUS patient is agreeable with full code and intubation if needed patient liver enzymes still remain elevated but improved compared to yesterday. 06/14/2021 Patient is seen and evaluated in follow-up this morning and continues on 15 L nonrebreather with pulmonary following. Patient is continued on dexamethasone along with vitamin and zinc supplements and was on Baricitinib and discontinued by pulmonary and started on IV ceftriaxone. Chest xray done today shows slightly more prominent worsening bilateral mid to lower lung multifocal and confluent opacities consistent with covid 19 progression. Patient appears anxious. Patient denies any chest pain or palpitations. Patient is afebrile today. Will add incentive spirometer and encouraged activity as tolerated. 06/15/2021 She is seen and evaluated and follow-up continues on 15 L nonrebreather and weaning as tolerated and currently working on 13 L nonrebreather with oxygen saturation of 94-99% and continues to feel dyspneic. Pulmonary following closely and patient was recently started on IV ceftriaxone for the possibility of community-acquired pneumonia along with Covid 19. Patient is continued on oral dexamethasone along with Lovenox vitamin and zinc supplements and will continue. Patient was having some extreme anxiety and anxiousness with difficulty in sleeping and was started on low-dose Ativan along with melatonin as needed. Incentive spirometer ordered and encourage the patient to continue using at least 10 times every hour while awake and continue to increase activity as tolerated. Will repeat chest x-ray and labs in the a.m. Labs: sodium is 143, potassium is 4.6, creatinine is 0.6, AST is 107, ALT is 113, alk phos is 84, urine Legionella was negative and urinalysis overall negative Constitutional: Denied any fatigue denied any fever. Reports anxiety although feels less anxious today Cardiovascular: denied any chest pain, palpitations Gastrointestinal denied any nausea vomiting Pulmonary: reports shortness of breath and cough Neurologic denied any new focal deficits All inpatient medications were reviewed and appropriate changes in these medications as dictated in the interval history and assessment and plan. Active Medications Acetaminophen (Acetaminophen Tab 325 Mg Tab) 650 mg PO Q6HR PRN PRN Reason: Mild Pain or Fever > 100.5 Last Admin: 06/13/21 10:47 Dose: 650 mg Documented by: Ascorbic Acid (Ascorbic Acid 500 Mg Tab) 1,000 mg PO DAILY [facility] Last Admin: 06/15/21 10:23 Dose: 1,000 mg Documented by: Azithromycin (Azithromycin 500 Mg Tab) 500 mg PO DAILY [facility] Last Admin: 06/15/21 13:39 Dose: 500 mg Documented by: Cholecalciferol (Cholecalciferol 25 Mcg (1000 Iu) Tablet) 25 mcg PO DAILY [facility] Last Admin: 06/15/21 10:23 Dose: 25 mcg Documented by: Dexamethasone (Dexamethasone 2 Mg Tab) 6 mg PO DAILY [facility] Last Admin: 06/15/21 10:23 Dose: 6 mg Documented by: Enoxaparin Sodium (Enoxaparin 40 Mg/0.4 Ml Syringe) 40 mg SQ DAILY [facility] Last Admin: 06/15/21 10:23 Dose: 40 mg Documented by: Famotidine (Famotidine 20 Mg Tab) 20 mg PO BID [facility] Last Admin: 06/15/21 10:23 Dose: 20 mg Documented by: Ceftriaxone Sodium 1 gm/ (Sodium Chloride) 50 mls @ 100 mls/hr IVPB Q24HR [facility] Last Admin: 06/15/21 10:24 Dose: 100 mls/hr Documented by: Lorazepam (Lorazepam 2 Mg/Ml Inj) 0.5 mg IV Q6HR PRN PRN Reason: Anxiety Last Admin: 06/14/21 22:38 Dose: 0.5 mg Documented by: Melatonin (Melatonin 3 Mg Tablet) 6 mg PO HS PRN PRN Reason: Insomnia Naloxone HCl (Naloxone 0.4 Mg/Ml 1 Ml Vial) 0.2 mg IV Q2M PRN PRN Reason: Opioid Reversal Zinc Sulfate (Zinc Sulfate 220 Mg Cap) 220 mg PO DAILY [facility] Last Admin: 06/15/21 10:23 Dose: 220 mg Documented by: PHYSICAL EXAMINATION: GENERAL: The patient is alert and oriented x3, mildly anxious. Well developed, well nourished. Continues on 13-14 L non-rebreather HEENT: Pupils are round and equally reacting to light. EOMI. No scleral icterus. No conjunctival pallor. Normocephalic, atraumatic. No pharyngeal erythema. No thyromegaly. CARDIOVASCULAR: S1 and S2 present. No murmurs, rubs, or gallops. PULMONARY: diminished breath sounds bilaterally otherwise Chest is clear to auscultation, no wheezing or crackles. Improved aeration today ABDOMEN: Soft, nontender, nondistended, normoactive bowel sounds. No palpable organomegaly. MUSCULOSKELETAL: No joint swelling or deformity. EXTREMITIES: No cyanosis, clubbing, or pedal edema. NEUROLOGICAL: Gross neurological examination did not reveal any focal deficits. SKIN: No rashes. Assessment: -Acute hypoxic respiratory failure secondary to Covid 19 pneumonia, patient is continued on oral dexamethasone along with covid supplements and lovenox, Baricitinib discontinued. Pulmonary following, on 15 L Non-rebreather -Possible community-acquired pneumonia started on ceftriaxone, pulmonary following, pro-calcitonin was elevated at 0.64 and will repeat labs tomorrow. -Transaminitis secondary to Covid 19 pneumonia, trending down today -elevated d-dimer with no evidence of PE on CT of the chest -Neutropenia improved secondary to sepsis -Thrombocytopenia improved secondary to sepsis -anxiety -Full code -DVT prophylaxis: Lovenox Plan: Continue on current medication regimen of Covid vitamin supplements along with L ovenox and oral dexamethasone. Pulmonary following. Encouraged incentive spirometer use at least 10 times every hour while awake and increase activity as tolerated. Patient was started on IV ceftriaxone for possibility of pneumonia with an elevated pro-calcitonin and will repeat pro-calcitonin with labs in the morning. Will continue to monitor closely. guarded prognosis. Objective - Vital Signs Vital signs: Vital Signs Temp 97.5 F L 06/15/21 05:48 Pulse 60 06/15/21 05:48 Resp 16 06/15/21 05:48 BP 113/62 06/15/21 05:48 Pulse Ox 94 L 06/15/21 05:48 Intake & Output 06/14/21 06/15/21 06/15/21 18:59 06:59 18:59 Intake Total 960 Balance 960 Intake: Intake, IV Titration 600 Amount Sodium Chloride 0.9% 1, 600 000 ml @ 75 mls/hr IV . [id number] [facility] Rx#:[id number] Oral 360 - Labs CBC & Chem 7: 06/14/21 06:25 06/15/21 05:33 Labs: Abnormal Lab Results - Last 24 Hours (Table) 06/14/21 06/14/21 06/14/21 Range/Units 06:25 06:25 19:40 WBC 3.97 L (4.50-10.00) X 10*3/uL Hgb 11.8 L (12.0-15.0) g/dL Hct 36.4 L (37.2-46.3) % Immature Gran # 0.05 H (0.00-0.04) X 10*3/uL Eosinophils # 0 L (0.04-0.35) X 10*3/uL Creatinine 0.5 L (0.6-1.5) mg/dL BUN/Creatinine Ratio 20.26 H (12.00-20.00) Ratio Glucose 114 H (70-110) mg/dL Calcium 8.1 L (8.7-10.3) mg/dL AST 86 H (13-35) U/L ALT 95 H (8-44) U/L Lactate Dehydrogenase 571 H (120-246) U/L C-Reactive Protein 5.70 H (0.00-0.80) mg/dL Total Protein 5.6 L (6.2-8.2) g/dL Albumin 3.2 L (3.8-4.9) g/dL Albumin/Globulin Ratio 1.37 L (1.60-3.17) g/dL Ur Specific Griffin >1.050 H (1.001-1.035) Urine Blood Trace H (Negative) Ur Leukocyte Esterase Small H (Negative) Urine Bacteria Rare H (None) /hpf
[2021-06-15] MEDS: MELATONIN 3 MG TABLET PO PRN (20:23)
[2021-06-15] MEDS: ACETAMINOPHEN TAB 325 MG TAB PO PRN (20:24)
[2021-06-16] MEDS: ENOXAPARIN 40 MG/0.4 ML SYRINGE SQ SCH (08:49)
[2021-06-16] MEDS: FAMOTIDINE 20 MG TAB PO SCH ×2 (08:49→20:30)
[2021-06-16] MEDS: dexAMETHasone 2 MG TAB PO SCH (08:49)
[2021-06-16] MEDS: AZITHROMYCIN 500 MG TAB PO SCH (08:49)
[2021-06-16] MEDS: ZINC SULFATE 220 MG CAP PO SCH (08:49)
[2021-06-16] MEDS: CHOLECALCIFEROL 25 MCG (1000 IU) TABLET PO SCH (08:49)
[2021-06-16] MEDS: ASCORBIC ACID 500 MG TAB PO SCH (08:49)
[2021-06-16 10:26] LABS: C Reactive Protein 1.1 mg/dL (0.00-0.80)
[2021-06-16 10:44] LABS: African American GFR (CKD) 140.8 (60.0-200.0); Albumin 3.6 g/dL (3.8-4.9); Albumin/Globulin Ratio 1.44 (1.60-3.17); Anion Gap 18.4 mmol/L (10.00-18.00); BUN/Creat Ratio 25.17 Ratio (12.00-20.00); Blood Urea Nitrogen 15.1 mg/dL (9.0-27.0); Calcium 8.7 mg/dL (8.7-10.3); Carbon Dioxide 23.6 mmol/L (20.0-27.5); Globulin 2.5 g/dL (1.6-3.3); Non-African American GFR(CKD) 121.5 (60.0-200.0); Potassium 4.4 mmol/L (3.5-5.5); Total Bilirubin 0.4 mg/dL (0.30-1.20); Total Protein 6.1 g/dL (6.2-8.2)
[2021-06-16 11:02] LABS: Basophils # (A) 0.02 X 10*3/uL (0.00-0.10); Basophils % (A) 0.2 %; Eosinophils # (A) 0 X 10*3/uL (0.04-0.35); Eosinophils % (A) 0 %; HCT 36.6 % (37.2-46.3); HGB 11.9 g/dL (12.0-15.0); Lymphocytes # (A) 2.04 X 10*3/uL (0.90-5.00); Lymphocytes % (A) 24.6 %; MCH 27.5 pg (27.0-32.0); MCHC 32.5 g/dL (32.0-37.0); MCV 84.5 fL (80.0-97.0); Mean Platelet Volume 11.3 fL (9.5-12.2); Monocytes # (A) 1.19 X 10*3/uL (0.20-1.00); Monocytes % (A) 14.3 %; Neutrophils # (A) 4.71 X 10*3/uL (1.80-7.70); Neutrophils % (A) 56.8 %; Platelet Count 306 X 10*3/uL (140-440); RBC 4.33 X 10*6/uL (4.10-5.20); RDW 13.5 % (11.5-14.5)
--- NOTE | 2021-06-16 13:22 | P.PN ---
Subjective Progress Note Date: 06/16/21 Principal diagnosis: Dyspnea, hypoxia On 06/14/2001 patient seen in follow-up on medical surgical floor, she is awake and alert, in no acute distress, although she is requiring high flow oxygen, currently on 100% nonrebreather mask with a pulse ox of 93%, she states it still hurts her chest when she is coughing on the right side. She tested positive for COVID-19, she has been started on Decadron 6 mg daily, she is on prophylactic dose Lovenox in addition to multivitamins, yesterday she was also started on Baricitinib view of worsening hypoxia, patient is not vaccinated, but she status post monoclonal antibody infusion, today's labs have been reviewed, and a pro calcitonin level is elevated at 0.64 suggesting bacterial superinfection. Her white blood cell count is 3.97, improving hemoglobin is 11.8, d-dimer is 0.71, electrolytes are unremarkable, BUN is 11 creatinine 0.5, LDH is improved and is down to 571, CRP is also improving and is down to 5.7. Her cough is dry, no phlegm production. No hemoptysis. No altered mentation. She is afebrile. On today's evaluation on 06/15/2021 patient seen in follow-up on medical surgical floor, she remains on a nonrebreather mask, and 100%, her pulse ox is 94-97%, she has been afebrile, hemodynamically she is been stable, her chest discomfort that she was experiencing with coughing and deep breathing on admission has improved, patient appears no cough, but there is no phlegm production. Lung sounds reveal diminished breath sounds with bilateral crackles, CTA chest showed no evidence of pulmonary embolism, it did show extensive bilateral pneumonia, her pro-calcitonin level was borderline elevated to 0.64 suggesting possibility of underlying bacterial infection in addition to COVID-19 pneumonia, Rocephin was added for empiric antibiotic coverage yesterday, patient continues on Decadron 6 mg daily, in addition to prophylactic Lovenox. Her last d-dimer yesterday was 0.71. Her inflammatory markers on yesterday's labs were improving compared admission levels. Patient is requesting a form filled out for her employer in regards to her COVID-19 vaccination. At this time patient cannot have COVID-19 vaccine due to active COVID-19 infection and active COVID-19 pneumonia, patient will not be able to receive COVID-19 vaccination for at least 90 days after her initial positive COVID-19 test. On 06/16/2021 patient seen in follow-up on medical surgical floor, she is currently on 9 L of oxygen pulse ox is 97%, and this can probably be titrated further down, she is breathing very comfortably, denies any cough, has not been able to produce a sputum sample. No fever or chills, vital signs have been stable, she is been ambulating about the room, tolerating activity very well, has no specific complaints. She is currently sitting up in the chair, lung sounds reveal minimal crackles, no rhonchi or wheezing, blood cultures have been sent, pending, patient remains on accommodation of Rocephin and Zithromax for empiric bad a coverage, and follow-up pro-calcitonin levels were down to 0.14 and 0.06, significantly improved. Follow d-dimer today 0.63, patient remains on prophylactic Lovenox, electrolytes and renal profile were unremarkable. Urinalysis showed no evidence of infection, and Legionella urine antigen was negative. Patient continues on Decadron 6 blood gram daily, and she is on prophylactic Lovenox 40 mg daily in addition to COVID-19 vitamins. Clinically has been stable, she is hoping to be able to go home in the next couple of days. Objective - Vital Signs Vital signs: Vital Signs Temp 97.6 F 06/16/21 04:45 Pulse 67 06/16/21 10:33 Resp 18 06/16/21 10:33 BP 103/60 06/16/21 10:33 Pulse Ox 97 06/16/21 10:33 Intake & Output 06/15/21 06/16/21 06/16/21 18:59 06:59 18:59 Intake Total 650 Balance 650 Intake: Oral 650 Other: # Voids 4 1 1 - Exam GENERAL EXAM: Alert, very pleasant, 31-year-old white female, currently on 9 L per high flow nasal cannula with a pulse ox of 97% comfortable in no apparent distress. HEAD: Normocephalic/atraumatic. EYES: Normal reaction of pupils, equal size. Conjunctiva pink, sclera white. NOSE: Clear with pink turbinates. THROAT: No erythema or exudates. NECK: No masses, no JVD, no thyroid enlargement, no adenopathy. CHEST: No chest wall deformity. Symmetrical expansion. LUNGS: Equal air entry with diminished breath sounds on bilateral crackles CVS: Regular rate and rhythm, normal S1 and S2, no gallops, no murmurs, no rubs ABDOMEN: Soft, nontender. No hepatosplenomegaly, normal bowel sounds, no guarding or rigidity. EXTREMITIES: No clubbing, no edema, no cyanosis, 2+ pulses and upper and lower extremities. MUSCULOSKELETAL: Muscle strength and tone normal. SPINE: No scoliosis or deformity SKIN: No rashes CENTRAL NERVOUS SYSTEM: Alert and oriented -3. No focal deficits, tone is normal in all 4 extremities. PSYCHIATRIC: Alert and oriented -3. Appropriate affect. Intact judgment and insight. - Labs CBC & Chem 7: 06/16/21 06:02 06/16/21 06:02 Labs: Abnormal Lab Results - Last 24 Hours (Table) 06/15/21 06/16/21 06/16/21 Range/Units 05:33 06:02 06:02 Hgb 11.9 L (12.0-15.0) g/dL Hct 36.6 L (37.2-46.3) % Immature Gran # 0.34 H (0.00-0.04) X 10*3/uL Monocytes # 1.19 H (0.20-1.00) X 10*3/uL Eosinophils # 0 L (0.04-0.35) X 10*3/uL D-Dimer 0.63 H (<0.60) mg/L FEU Anion Gap (10.00-18.00) mmol/L BUN/Creatinine Ratio (12.00-20.00) Ratio AST (13-35) U/L ALT (8-44) U/L Lactate Dehydrogenase (120-246) U/L C-Reactive Protein (0.00-0.80) mg/dL Total Protein (6.2-8.2) g/dL Albumin (3.8-4.9) g/dL Albumin/Globulin Ratio (1.60-3.17) g/dL Procalcitonin 0.14 H (0.02-0.09) ng/mL 06/16/21 Range/Units 06:02 Hgb (12.0-15.0) g/dL Hct (37.2-46.3) % Immature Gran # (0.00-0.04) X 10*3/uL Monocytes # (0.20-1.00) X 10*3/uL Eosinophils # (0.04-0.35) X 10*3/uL D-Dimer (<0.60) mg/L FEU Anion Gap 18.40 H (10.00-18.00) mmol/L BUN/Creatinine Ratio 25.17 H (12.00-20.00) Ratio AST 93 H (13-35) U/L ALT 170 H (8-44) U/L Lactate Dehydrogenase 562 H (120-246) U/L C-Reactive Protein 1.10 H (0.00-0.80) mg/dL Total Protein 6.1 L (6.2-8.2) g/dL Albumin 3.6 L (3.8-4.9) g/dL Albumin/Globulin Ratio 1.44 L (1.60-3.17) g/dL Procalcitonin (0.02-0.09) ng/mL Microbiology - Last 24 Hours (Table) 06/14/21 18:55 Blood Culture - Preliminary Blood No Growth after 24 hours 06/14/21 18:55 Blood Culture - Preliminary Blood No Growth after 24 hours Assessment and Plan Plan: Assessment: #1. Acute hypoxic respiratory failure, multifactorial, related to acute COVID- 19 related pneumonia, diagnosis was established on 06/07/2021, patient was symptomatic for more than a week, she was outside the window for Remdesivir, in view of severe hypoxia she was started on Baricitinib. Possibility of underlying bacterial infection is not completely excluded based on elevated pro calcitonin of 0.64 #2. Rule out possibility of bacterial pneumonia, possibly community acquired pneumonia based on elevated pro calcitonin. We'll stop Barocitinib today on 06/14/2021 and start the patient on Rocephin #3. Acute leukopenia, rule out component of sepsis #4. Anemia and thrombocytopenia possibly related to sepsis and COVID-19 related pneumonia #5. Elevated inflammatory markers related to acute COVID-19 related pneumonia #6. Mildly elevated d-dimer, CT angios the chest was negative for pulmonary embolism Plan: Clinically patient has remained stable FiO2 is being weaned down impression is currently down to 9 L/m Breathing quite comfortably, no cough, no fever or chills, Pro calcitonin level has significantly improved We'll continue empiric antibiotics for now Legionella urine antigen was negative UA was negative We will obtain follow-up chest x-ray tomorrow If chest x-ray shows improvement and her oxygenation continues to improve to less than 5 L may consider for discharge home in the next 24-48 hours I performed a history & physical examination of the patient and discussed their management with my nurse practitioner, Megan Ibrahim. I reviewed the nurse practitioner's note and agree with the documented findings and plan of care. Lung sounds are positive for dimin breath sounds throughout the lung sarah. The findings and the impression was discussed with the patient. I attest to the documentation by the nurse practitioner. Time with Patient: Less than 30
--- NOTE | 2021-06-16 15:45 | P.PN ---
Subjective Progress Note Date: 06/16/21 Patient D1-year-old female came with complaints of a cough congestion started about 7 days ago and patient was diagnosed with Covid 19 about 5 days ago. Patient was receiving monoclonal antibodies earlier today and up having hypoxic subsequently admitted to medical floor. Patient is presently on Decadron Lovenox. She does have elevated liver enzymes. 06/13/2021 Patient is still febrile with temperature of 100.4. Patient's hyponatremia improved white blood cell come improved patient is bit neutropenic yesterday and patient platelet count improved as well all these are because of sepsis. Samira ent was pretty status although has worsened and patient is presently on 15 L of oxygen. Discussed her CODE STATUS patient is agreeable with full code and intubation if needed patient liver enzymes still remain elevated but improved compared to yesterday. 06/14/2021 Patient is seen and evaluated in follow-up this morning and continues on 15 L nonrebreather with pulmonary following. Patient is continued on dexamethasone along with vitamin and zinc supplements and was on Baricitinib and discontinued by pulmonary and started on IV ceftriaxone. Chest xray done today shows slightly more prominent worsening bilateral mid to lower lung multifocal and confluent opacities consistent with covid 19 progression. Patient appears anxious. Patient denies any chest pain or palpitations. Patient is afebrile today. Will add incentive spirometer and encouraged activity as tolerated. 06/15/2021 She is seen and evaluated and follow-up continues on 15 L nonrebreather and weaning as tolerated and currently working on 13 L nonrebreather with oxygen saturation of 94-99% and continues to feel dyspneic. Pulmonary following closely and patient was recently started on IV ceftriaxone for the possibility of community-acquired pneumonia along with Covid 19. Patient is continued on oral dexamethasone along with Lovenox vitamin and zinc supplements and will continue. Patient was having some extreme anxiety and anxiousness with difficulty in sleeping and was started on low-dose Ativan along with melatonin as needed. Incentive spirometer ordered and encourage the patient to continue using at least 10 times every hour while awake and continue to increase activity as tolerated. Will repeat chest x-ray and labs in the a.m. 06/16/2021 Patient is seen and evaluated this morning currently sitting up in the chair appears much more relaxed in no acute distress. Patient currently weaning Fio2 as tolerated and now down to 7 L high flow via nasal cannula with oxygen saturations of 97%. Pulmonary is following the patient is maintained on IV ceftriaxone along with dexamethasone, Lovenox, vitamin and zinc supplements and will continue. Rest of the patient to continue using incentive spirometer at l east 10 times every hour and encouraged increased activity along with encouraging oral intake. Discussed with the patient about maintaining oxygen saturations above 90% on 5 L or less and will consider discharging home. Labs: white blood count is 8.3, hemoglobin is 11.9, platelets are 306, d-dimer 0.63, sodium is 144, potassium is 4.4, creatinine is 0.6, LDH is 562, CRP is 1.1, pro calcitonin is negative at 0.06. Constitutional: Denied any fatigue denied any fever. Cardiovascular: denied any chest pain, palpitations Gastrointestinal denied any nausea vomiting Pulmonary: reports shortness of breath and cough Although feels is improving Neurologic denied any new focal deficits All inpatient medications were reviewed and appropriate changes in these medications as dictated in the interval history and assessment and plan. Active Medications Acetaminophen (Acetaminophen Tab 325 Mg Tab) 650 mg PO Q6HR PRN PRN Reason: Mild Pain or Fever > 100.5 Last Admin: 06/15/21 20:24 Dose: 650 mg Documented by: Ascorbic Acid (Ascorbic Acid 500 Mg Tab) 1,000 mg PO DAILY [facility] Last Admin: 06/16/21 08:49 Dose: 1,000 mg Documented by: Azithromycin (Azithromycin 500 Mg Tab) 500 mg PO DAILY [facility] Last Admin: 06/16/21 08:49 Dose: 500 mg Documented by: Cholecalciferol (Cholecalciferol 25 Mcg (1000 Iu) Tablet) 25 mcg PO DAILY [facility] Last Admin: 06/16/21 08:49 Dose: 25 mcg Documented by: Dexamethasone (Dexamethasone 2 Mg Tab) 6 mg PO DAILY [facility] Last Admin: 06/16/21 08:49 Dose: 6 mg Documented by: Enoxaparin Sodium (Enoxaparin 40 Mg/0.4 Ml Syringe) 40 mg SQ DAILY [facility] Last Admin: 06/16/21 08:49 Dose: 40 mg Documented by: Famotidine (Famotidine 20 Mg Tab) 20 mg PO BID [facility] Last Admin: 06/16/21 08:49 Dose: 20 mg Documented by: Ceftriaxone Sodium 1 gm/ (Sodium Chloride) 50 mls @ 100 mls/hr IVPB Q24HR [facility] Last Admin: 06/16/21 08:49 Dose: 100 mls/hr Documented by: Lorazepam (Lorazepam 2 Mg/Ml Inj) 0.5 mg IV Q6HR PRN PRN Reason: Anxiety Last Admin: 06/14/21 22:38 Dose: 0.5 mg Documented by: Melatonin (Melatonin 3 Mg Tablet) 6 mg PO HS PRN PRN Reason: Insomnia Last Admin: 06/15/21 20:23 Dose: 6 mg Documented by: Naloxone HCl (Naloxone 0.4 Mg/Ml 1 Ml Vial) 0.2 mg IV Q2M PRN PRN Reason: Opioid Reversal Zinc Sulfate (Zinc Sulfate 220 Mg Cap) 220 mg PO DAILY [facility] Last Admin: 06/16/21 08:49 Dose: 220 mg Documented by: PHYSICAL EXAMINATION: GENERAL: The patient is alert and oriented x3, mildly anxious. Well developed, well nourished. Continues on 7L high flow HEENT: Pupils are round and equally reacting to light. EOMI. No scleral icterus. No conjunctival pallor. Normocephalic, atraumatic. No pharyngeal erythema. No thyromegaly. CARDIOVASCULAR: S1 and S2 present. No murmurs, rubs, or gallops. PULMONARY: diminished breath sounds bilaterally otherwise Chest is clear to auscultation, no wheezing or crackles. Improved aeration today ABDOMEN: Soft, nontender, nondistended, normoactive bowel sounds. No palpable organomegaly. MUSCULOSKELETAL: No joint swelling or deformity. EXTREMITIES: No cyanosis, clubbing, or pedal edema. NEUROLOGICAL: Gross neurological examination did not reveal any focal deficits. SKIN: No rashes. Assessment: -Acute hypoxic respiratory failure secondary to Covid 19 pneumonia, patient is continued on oral dexamethasone along with covid supplements and lovenox, Baricitinib discontinued. Pulmonary following, on 7L nasal cannula -Possible community-acquired pneumonia started on ceftriaxone, pulmonary following, pro-calcitonin was elevated at 0.64, repeat pro-calcitonin is negative -Transaminitis secondary to Covid 19 pneumonia, trending down today -elevated d-dimer with no evidence of PE on CT of the chest -Neutropenia improved secondary to sepsis -Thrombocytopenia improved secondary to sepsis -anxiety -Full code -DVT prophylaxis: Lovenox Plan: Continue on current medication regimen of Covid vitamin supplements along with Lovenox and oral dexamethasone. Pulmonary following. Encouraged incentive spirometer use at least 10 times every hour while awake and increase activity as tolerated. Patient continued on IV ceftriaxone for possibility of pneumonia w ith an elevated pro-calcitonin and repeat pro-calcitoni is negative although will continue for now empirically. Will continue to monitor closely. repeat labs and chest x-ray in the morning. Will discuss with case management about arranging for oxygen on discharge secondary to Covid 19 and if patient is able to maintain oxygen saturations above 90% on 5 L will consider discharging home in the next 24-48 hours.. guarded prognosis. Objective - Vital Signs Vital signs: Vital Signs Temp 97.6 F 06/16/21 04:45 Pulse 67 06/16/21 10:33 Resp 18 06/16/21 10:33 BP 103/60 06/16/21 10:33 Pulse Ox 97 06/16/21 10:33 Intake & Output 06/15/21 06/16/21 06/16/21 18:59 06:59 18:59 Intake Total 650 Balance 650 Intake: Oral 650 Other: # Voids 4 1 - Labs CBC & Chem 7: 06/16/21 06:02 06/16/21 06:02 Labs: Abnormal Lab Results - Last 24 Hours (Table) 06/15/21 06/15/21 06/16/21 Range/Units 05:33 05:33 06:02 D-Dimer 0.63 H (<0.60) mg/L FEU Chloride 110 H (96-109) mmol/L BUN/Creatinine Ratio 24.10 H (12.00-20.00) Ratio Glucose 129 H (70-110) mg/dL Calcium 8.3 L (8.7-10.3) mg/dL AST 107 H (13-35) U/L ALT 113 H (8-44) U/L Lactate Dehydrogenase (120-246) U/L C-Reactive Protein (0.00-0.80) mg/dL Total Protein 5.4 L (6.2-8.2) g/dL Albumin 3.1 L (3.8-4.9) g/dL Albumin/Globulin Ratio 1.36 L (1.60-3.17) g/dL Procalcitonin 0.14 H (0.02-0.09) ng/mL 06/16/21 Range/Units 06:02 D-Dimer (<0.60) mg/L FEU Chloride (96-109) mmol/L BUN/Creatinine Ratio (12.00-20.00) Ratio Glucose (70-110) mg/dL Calcium (8.7-10.3) mg/dL AST (13-35) U/L ALT (8-44) U/L Lactate Dehydrogenase 562 H (120-246) U/L C-Reactive Protein 1.10 H (0.00-0.80) mg/dL Total Protein (6.2-8.2) g/dL Albumin (3.8-4.9) g/dL Albumin/Globulin Ratio (1.60-3.17) g/dL Procalcitonin (0.02-0.09) ng/mL Microbiology - Last 24 Hours (Table) 06/14/21 18:55 Blood Culture - Preliminary Blood No Growth after 24 hours 06/14/21 18:55 Blood Culture - Preliminary Blood No Growth after 24 hours
[2021-06-16] MEDS: MELATONIN 3 MG TABLET PO PRN (20:30)
--- NOTE | 2021-06-17 09:15 | XR ---
EXAMINATION TYPE: XR chest 1V portable DATE OF EXAM: 06/17/2021 COMPARISON: Chest x-ray and CT dated 06/14/2021 HISTORY: Covid, pneumonia TECHNIQUE: Single frontal view of the chest is obtained. FINDINGS: There is some improvement in aeration within the lungs as compared to prior exam. No evide nt pneumothorax or pleural effusion. Lung volumes are low. Cardiac mediastinal silhouette is within n ormal limits. Bones are unchanged. IMPRESSION: Improvement in aeration.
[2021-06-17] MEDS: ASCORBIC ACID 500 MG TAB PO SCH (10:23)
[2021-06-17] MEDS: ZINC SULFATE 220 MG CAP PO SCH (10:24)
[2021-06-17] MEDS: dexAMETHasone 2 MG TAB PO SCH (10:24)
[2021-06-17] MEDS: CHOLECALCIFEROL 25 MCG (1000 IU) TABLET PO SCH (10:24)
[2021-06-17] MEDS: ENOXAPARIN 40 MG/0.4 ML SYRINGE SQ SCH (10:24)
[2021-06-17] MEDS: AZITHROMYCIN 500 MG TAB PO SCH (10:24)
[2021-06-17] MEDS: FAMOTIDINE 20 MG TAB PO SCH (10:24)
--- NOTE | 2021-06-17 12:05 | P.PN ---
Subjective Progress Note Date: 06/17/21 Principal diagnosis: Dyspnea, hypoxia On 06/14/2001 patient seen in follow-up on medical surgical floor, she is awake and alert, in no acute distress, although she is requiring high flow oxygen, currently on 100% nonrebreather mask with a pulse ox of 93%, she states it still hurts her chest when she is coughing on the right side. She tested positive for COVID-19, she has been started on Decadron 6 mg daily, she is on prophylactic dose Lovenox in addition to multivitamins, yesterday she was also started on Baricitinib view of worsening hypoxia, patient is not vaccinated, but she status post monoclonal antibody infusion, today's labs have been reviewed, and a pro calcitonin level is elevated at 0.64 suggesting bacterial superinfection. Her white blood cell count is 3.97, improving hemoglobin is 11.8, d-dimer is 0.71, electrolytes are unremarkable, BUN is 11 creatinine 0.5, LDH is improved and is down to 571, CRP is also improving and is down to 5.7. Her cough is dry, no phlegm production. No hemoptysis. No altered mentation. She is afebrile. On today's evaluation on 06/15/2021 patient seen in follow-up on medical surgical floor, she remains on a nonrebreather mask, and 100%, her pulse ox is 94-97%, she has been afebrile, hemodynamically she is been stable, her chest discomfort that she was experiencing with coughing and deep breathing on admission has improved, patient appears no cough, but there is no phlegm production. Lung sounds reveal diminished breath sounds with bilateral crackles, CTA chest showed no evidence of pulmonary embolism, it did show extensive bilateral pneumonia, her pro-calcitonin level was borderline elevated to 0.64 suggesting possibility of underlying bacterial infection in addition to COVID-19 pneumonia, Rocephin was added for empiric antibiotic coverage yesterday, patient continues on Decadron 6 mg daily, in addition to prophylactic Lovenox. Her last d-dimer yesterday was 0.71. Her inflammatory markers on yesterday's labs were improving compared admission levels. Patient is requesting a form filled out for her employer in regards to her COVID-19 vaccination. At this time patient cannot have COVID-19 vaccine due to active COVID-19 infection and active COVID-19 pneumonia, patient will not be able to receive COVID-19 vaccination for at least 90 days after her initial positive COVID-19 test. On 06/16/2021 patient seen in follow-up on medical surgical floor, she is currently on 9 L of oxygen pulse ox is 97%, and this can probably be titrated further down, she is breathing very comfortably, denies any cough, has not been able to produce a sputum sample. No fever or chills, vital signs have been stable, she is been ambulating about the room, tolerating activity very well, has no specific complaints. She is currently sitting up in the chair, lung sounds reveal minimal crackles, no rhonchi or wheezing, blood cultures have been sent, pending, patient remains on accommodation of Rocephin and Zithromax for empiric bad a coverage, and follow-up pro-calcitonin levels were down to 0.14 and 0.06, significantly improved. Follow d-dimer today 0.63, patient remains on prophylactic Lovenox, electrolytes and renal profile were unremarkable. Urinalysis showed no evidence of infection, and Legionella urine antigen was negative. Patient continues on Decadron 6 blood gram daily, and she is on prophylactic Lovenox 40 mg daily in addition to COVID-19 vitamins. Clinically has been stable, she is hoping to be able to go home in the next couple of days. On 06/17/2021 patient seen in follow-up on medical surgical floor. She is awake and alert, in no acute distress, she denies any cough, no dyspnea, on 6 L of oxygen her pulse ox was 99% this morning, FiO2 has been dropped to 5 L, she is breathing very comfortably, lung sounds reveal minimal crackles, patient has been ambulating in the room, tolerating activity well, no complex of chest pain, she states she has a hard time sleeping here related to a lot of activity at night, vital signs checks, she is requesting to go home today if possible. Repeat chest x-ray today shows significant improvement in aeration. Today's labs have been reviewed, white blood cell count is 8.3, hemoglobin of 11.9, lymphocyte count is 2.04, d-dimer is 0.63, electrolytes are within normal limits, BUN is 15, creatinine 0.6, LDH improved since admission and is down to 560-1 today's labs, CRP is 1.1, pro-calcitonin level today is 0.06. Blood cultures have shown no growth, patient was given empiric antibiotics in the form of azithromycin and Rocephin, Legionella urine antigen has been negative. She continues on Decadron 6 mg daily and prophylactic Lovenox. She has had no acute events overnight, tolerating oral intake, no nausea vomiting or diarrhea. Objective - Vital Signs Vital signs: Vital Signs Temp 97.6 F 06/17/21 10:00 Pulse 57 L 06/17/21 10:00 Resp 18 06/17/21 10:00 BP 102/63 06/17/21 10:00 Pulse Ox 99 06/17/21 10:00 Intake & Output 06/16/21 06/17/21 06/17/21 18:59 06:59 18:59 Intake Total 500 600 Balance 500 600 Intake: Intake, IV Titration 100 Amount cefTRIAXone 1 gm In 100 Sodium Chloride 0.9% 50 ml @ 100 mls/hr IVPB Q24HR [facility] Rx#:[id number] Oral 400 600 Other: Voiding Method Toilet # Voids 1 3 - Exam GENERAL EXAM: Alert, very pleasant, 31-year-old white female, currently on 6 L per high flow nasal cannula with a pulse ox of 99% comfortable in no apparent distress. HEAD: Normocephalic/atraumatic. EYES: Normal reaction of pupils, equal size. Conjunctiva pink, sclera white. NOSE: Clear with pink turbinates. THROAT: No erythema or exudates. NECK: No masses, no JVD, no thyroid enlargement, no adenopathy. CHEST: No chest wall deformity. Symmetrical expansion. LUNGS: Equal air entry with diminished breath sounds on bilateral crackles CVS: Regular rate and rhythm, normal S1 and S2, no gallops, no murmurs, no rubs ABDOMEN: Soft, nontender. No hepatosplenomegaly, normal bowel sounds, no guarding or rigidity. EXTREMITIES: No clubbing, no edema, no cyanosis, 2+ pulses and upper and lower extremities. MUSCULOSKELETAL: Muscle strength and tone normal. SPINE: No scoliosis or deformity SKIN: No rashes CENTRAL NERVOUS SYSTEM: Alert and oriented -3. No focal deficits, tone is normal in all 4 extremities. PSYCHIATRIC: Alert and oriented -3. Appropriate affect. Intact judgment and insight. - Labs CBC & Chem 7: 06/16/21 06:02 12 06:02 Labs: Microbiology - Last 24 Hours (Table) 06/14/21 18:55 Blood Culture - Preliminary Blood No Growth after 48 hours 06/14/21 18:55 Blood Culture - Preliminary Blood No Growth after 48 hours Assessment and Plan Plan: Assessment: #1. Acute hypoxic respiratory failure, multifactorial, related to acute COVID- 19 related pneumonia, diagnosis was established on 06/07/2021, patient was symptomatic for more than a week, she was outside the window for Remdesivir, in view of severe hypoxia she was started on Baricitinib. Possibility of under lying bacterial infection is not completely excluded based on elevated pro calcitonin of 0.64 #2. Mildly elevated pro calcitonin level suggesting possibility of underlying bacterial infection and patient was covered with azithromycin and Rocephin, follow up pro calcitonin levels were negative, Legionella urine antigen was negative, blood cultures have shown no growth #3. Acute leukopenia, rule out component of sepsis, sepsis workup is negative thus far, blood cultures are negative, patient's was given azithromycin and Rocephin, Pro calcitonin level has improved, leukopenia resolved #4. Anemia and thrombocytopenia possibly related to sepsis and COVID-19 related pneumonia #5. Elevated inflammatory markers related to acute COVID-19 related pneumonia #6. Mildly elevated d-dimer, CT angios the chest was negative for pulmonary embolism Plan: Patient's chest x-ray showing improvement in aeration Vital signs are stable, FiO2 is down to 5 L Breathing comfortably, clinically stable Stable for discharge home today She can complete outpatient course of Decadron She can continue on COVID-19 vitamins Outpatient follow-up with Dr. Ramos in the office in 2 weeks I performed a history & physical examination of the patient and discussed their management with my nurse practitioner, Megan Ibrahim. I reviewed the nurse practitioner's note and agree with the documented findings and plan of care. Lung sounds are positive for dimin breath sounds throughout the lung sarah. The findings and the impression was discussed with the patient. I attest to the documentation by the nurse practitioner. Time with Patient: Less than 30
[2021-06-17 14:36] VITALS: BMI 29.2
[2021-06-17 15:29] VITALS: BP 106/67; PULSE 62; RESP 19; TEMP 97.3
--- NOTE | 2021-06-18 08:53 | P.DS ---
Providers Date of admission: 06/12/21 13:48 Expected date of discharge: 06/17/21 Attending physician: Halina Betancourt Consults: 06/12/21 13:38 Consult Physician Urgent Consulting Provider: July Ramos Consult Reason/Comments: covid Do you want consulting provider notified?: Yes Primary care physician: Darcie Michael [facility] Course: Final diagnosis -Acute hypoxic respiratory failure secondary to Covid 19 pneumonia -Possible community-acquired pneumonia, ruled out -Transaminitis secondary to Covid 19 pneumonia -elevated d-dimer with no evidence of PE on CT of the chest -Neutropenia improved secondary to sepsis -Thrombocytopenia improved secondary to sepsis -anxiety -Full code -DVT prophylaxis Discharge disposition Patient is being discharged in a stable condition with guarded prognosis to home. Patient will follow-up with Dr. Darcie Michael in the outpatient setting upon discharge. Patient is to continue with vitamin and zinc supplements along with dexamethasone to complete the course. Patient will also follow-up with pulmonary Dr. Ramos in 2-3 weeks in the outpatient setting. Total time taken is greater than 35 minutes. Hospital course This is a 31-year-old female who came in with cough and congestion that it started 7 days prior to admission and patient was found positive for COVID-19 approximately 5 days ago. Patient did receive monoclonal antibodies and continued to worsen and becoming more hypoxic and patient was admitted with consult pulmonary. Patient was initially on 15 L nonrebreather along with inflammatory marker elevation. Patient was also initially started on ceftriaxone for possibility of pneumonia although suspicion was low as per calcitonin was negative. Patient oxygen saturations significantly improved and was weaned down to 5 L via nasal cannula. Case management has prescription and arranging for 5 L via nasal cannula of oxygen secondary to COVID-19 on discharge. Patient instructed and encouraged to continue using incentive spirometer along with fluids and rest and monitor for any worsening signs or symptoms. Patient instructed to follow-up with primary care provider along with pulmonary in the outpatient setting. Patient is anxious to go home and feels she is well enough to do so. Patient denies any worsening shortness of breath. Currently no reports of chest pain, shortness of breath, or palpitations. Patient is afebrile. No reports of nausea or vomiting and patient is tolerating diet. Patient will be discharged home today. PHYSICAL EXAMINATION: GENERAL: The patient is alert and oriented x3, mildly anxious. Well developed, well nourished. Continues on 5L NC HEENT: Pupils are round and equally reacting to light. EOMI. No scleral icterus. No conjunctival pallor. Normocephalic, atraumatic. No pharyngeal erythema. No thyromegaly. CARDIOVASCULAR: S1 and S2 present. No murmurs, rubs, or gallops. PULMONARY: diminished breath sounds bilaterally otherwise Chest is clear to auscultation, no wheezing or crackles. Improved aeration today ABDOMEN: Soft, nontender, nondistended, normoactive bowel sounds. No palpable organomegaly. MUSCULOSKELETAL: No joint swelling or deformity. EXTREMITIES: No cyanosis, clubbing, or pedal edema. NEUROLOGICAL: Gross neurological examination did not reveal any focal deficits. SKIN: No rashes. Please refer to medication reconciliation sheet for a list of medications. Patient Condition at Discharge: Fair Plan - Discharge Summary Discharge Rx Participant: Yes New Discharge Prescriptions: New Dexamethasone 6 mg PO DAILY 5 Days #5 tablet Cholecalciferol [Vitamin D3 (25 Mcg = 1000 Iu)] 25 mcg PO DAILY #30 tablet Zinc Sulfate [Orazinc] 220 mg PO DAILY #30 cap Ascorbic Acid [Vitamin C] 1,000 mg PO DAILY 30 Days #60 tab Continue Ferrous Sulfate [Iron (65 MG Elemental)] 325 mg PO DAILY guaiFENesin [Mucinex] 600 mg PO BID PRN PRN Reason: Cough Ibuprofen [Motrin Ib] 800 mg PO Q8H PRN PRN Reason: Pain Or Fever > 100.5 Ascorbic Acid [Vitamin C] 1,000 mg PO DAILY Estarylla 0.25-0.035 1 tab PO DAILY Acetaminophen Tab [Tylenol] 1,000 mg PO Q6HR PRN PRN Reason: Pain Or Fever > 100.5 Discharge Medication List Acetaminophen Tab [Tylenol] 1,000 mg PO Q6HR PRN 06/12/21 [History] Ascorbic Acid [Vitamin C] 1,000 mg PO DAILY 06/12/21 [History] Estarylla 0.25-0.035 1 tab PO DAILY 06/12/21 [History] Ferrous Sulfate [Iron (65 MG Elemental)] 325 mg PO DAILY 06/12/21 [History] Ibuprofen [Motrin Ib] 800 mg PO Q8H PRN 06/12/21 [History] guaiFENesin [Mucinex] 600 mg PO BID PRN 06/12/21 [History] Ascorbic Acid [Vitamin C] 1,000 mg PO DAILY 30 Days #60 tab 06/17/21 [Rx] Cholecalciferol [Vitamin D3 (25 Mcg = 1000 Iu)] 25 mcg PO DAILY #30 tablet 06/17/21 [Rx] Dexamethasone 6 mg PO DAILY 5 Days #5 tablet 06/17/21 [Rx] Zinc Sulfate [Orazinc] 220 mg PO DAILY #30 cap 06/17/21 [Rx] Follow up Appointment(s)/Referral(s): Breeden Ren,Equipment [NON-STAFF] - As Needed (oxygen ) Darcie Michael MD [Primary Care Provider] - 1-2 days July Ramos MD [STAFF PHYSICIAN] - 2 Weeks Patient Instructions/Handouts: Coronavirus Disease 2019 (COVID-19), Using Oxygen at Home (DC) Activity/Diet/Wound Care/Special Instructions: Please return to the Emergency Department if symptoms worsen or any other concerns. Activity Limited until follow-up Encourage fluids and rest Continue with incentive spirometer at least 10 times every hour while awake Patient will require Oxygen at 5 L via nasal cannula secondary to COVID-19 on discharge Monitor oxygen saturations and obtain a pulse ox and keep a diary for primary and pulmonary follow-up Wean oxygen as tolerated Take medications as prescribed follow up with pulmonary in the outpatient setting Follow-up with primary care provider upon discharge Discharge Disposition: HOME SELF-CARE
== END 2021-06-17 15:51 | disposition home or self-care (01) | DRG 871 ==
LOC: EC 08:15 → 4SSUR 13:48
PROVIDERS: ADMIT Internal Medicine; ATTEND Internal Medicine
PROC: XW033E5 Introduction of Remdesivir Anti-infective into Peripheral Vein, Percutaneous Approach, New Technology Group 5 (ICD-10-PCS; principal; 2021-06-12)
PROC: XW0DXM6 Introduction of Baricitinib into Mouth and Pharynx, External Approach, New Technology Group 6 (ICD-10-PCS; 2021-06-13)
DX: A41.89 Other specified sepsis (principal); U07.1 COVID-19; J96.01 Acute respiratory failure with hypoxia; J12.82 Pneumonia due to coronavirus disease 2019; E87.1 Hypo-osmolality and hyponatremia; D69.6 Thrombocytopenia, unspecified; D70.9 Neutropenia, unspecified; R74.8 Abnormal levels of other serum enzymes; F41.9 Anxiety disorder, unspecified; D64.9 Anemia, unspecified; R74.01 Elevation of levels of liver transaminase levels; Z98.890 Other specified postprocedural states
CPT/HCPCS: 71045; 71275; 80053; 81001; 83615; 84145; 85025; 85027; 85379; 86140; 87040; 87449; 94760; 96361; 96374; 99284